=== PATIENT | female | born 1955 | race Caucasian/White ===

== ENCOUNTER 2021-06-08 01:39 | Day surgery (SDC) | payer MEDICARE, SELFPAY ==
[2021-05-31 14:44] VITALS: BMI 30.2
--- NOTE | 2021-06-07 19:39 | PM.HPGS ---
History of Present Illness History of Present Illness Consent: Risks, benefits, and alternatives have been discussed and questions answered. Patient agrees to proceed with procedure. Chief complaint: hx of colon polyps Z86.010 Narrative: Juanita Tran is a 66 year old female here for colon cancer screening. She has a history of polyps Review of Systems Review of Systems: All systems reviewed & are unremarkable except as noted in HPI and below PMFSH Past Medical History Medical History Dyslipidemia 01/30/18 Essential (primary) hypertension Family history of colon cancer in father History of colon polyps Vitamin D deficiency Surgical History Surgical History History of total hysterectomy (Unknown) Family History Family History Other Carcinoma of colon Family history of coronary artery disease Family history of hypercholesterolemia Social History Social History Smoking status: Never smoker Second hand tobacco smoke exposure: No Alcohol intake: never Substance use: never Substance use type: does not use Living arrangements: with family Gender identity (if verbalized by the patient): Female Spiritual care concerns: No Meds Home Medications and Allergies Home Medications Medication Instructions Recorded Confirmed Type cholecalciferol (vitamin D3) 1,250 1,250 mcg PO WEEKLY #12 cap 04/21/21 05/31/21 Rx mcg (50,000 unit) capsule amlodipine 5 mg tablet 5 mg PO DAILY #90 tablet 05/25/21 05/31/21 Rx pravastatin 20 mg tablet 20 mg PO QHS #90 tablet 05/31/21 05/31/21 Rx Allergies Allergy/AdvReac Type Severity Reaction Status Date / Time No Known Allergies Allergy Verified 06/08/21 06:55 Exam Const: General: alert Orientation/consciousness: patient oriented x3 Resp: Auscultation: clear to auscultation bilaterally Cardio: Rhythm: regular rhythm GI: GI Palp: Yes Soft to palpation and No Tenderness to palpation present (GI) Neuro: General: patient oriented x3 Assessment and Plan Assessment and plan (1) Colon cancer screening: Code(s): Z12.11 - Encounter for screening for malignant neoplasm of colon Status: Acute Assessment and Plan: Colonoscopy with possible biopsy or polypectomy or cautery or injection of substances.
[2021-06-08 06:56] VITALS: BP 140/65; PULSE 82; RESP 18; TEMP 36.6; O2SAT 100; BMI 29.8
[2021-06-08] MEDS: LACTATED RINGERS 1,000 ML 150 ML IV CONT (07:07)
--- NOTE | 2021-06-08 07:09 | WPDANESEPPF ---
Anes - Initial Pre Proc Eval Procedure: Operation Date: 06/08/21 08:00 Proposed Procedures p Screening Colonoscopy - Vishal Bryson MD Date/Time: 06/08/21 07:09 Surgeon: Vishal Bryson MD Pre Op Diagnosis: hx of colon polyps Z86.010 Patient Data Age: 66 Gender: F Height: 1.63 m Weight: 78.8 kg Last Vital Signs Temp 36.6 C 06/08/21 06:56 Pulse 82 06/08/21 06:56 Resp 18 06/08/21 06:56 BP 140/65 06/08/21 06:56 Pulse Ox 100 06/08/21 06:56 Allergies Allergy/AdvReac Type Severity Reaction Status Date / Time No Known Allergies Allergy Verified 06/08/21 06:55 Home Medications Medication Instructions Recorded Confirmed Type cholecalciferol (vitamin D3) 1,250 1,250 mcg PO WEEKLY #12 cap 04/21/21 05/31/21 Rx mcg (50,000 unit) capsule amlodipine 5 mg tablet 5 mg PO DAILY #90 tablet 05/25/21 05/31/21 Rx pravastatin 20 mg tablet 20 mg PO QHS #90 tablet 05/31/21 05/31/21 Rx Patient hx anesthesia problems: none Family hx anesthesia problems: none PMFSH Past Medical History Medical History Dyslipidemia 01/30/18 Essential (primary) hypertension Family history of colon cancer in father History of colon polyps Vitamin D deficiency Surgical History Surgical History History of total hysterectomy (Unknown) Family History Family History Other Carcinoma of colon Family history of coronary artery disease Family history of hypercholesterolemia Social History Social History Smoking status: Never smoker Second hand tobacco smoke exposure: No Alcohol intake: never Substance use: never Substance use type: does not use Living arrangements: with family Gender identity (if verbalized by the patient): Female Spiritual care concerns: No Anes - Eval Final PreProcedure Day of Procedure 06/08/21 07:09 Patient weight: overweight Heart: regular rate and rhythm Lungs: clear to auscultation and normal air movement Airway: Mallampati scale class II Neurological: alert and oriented Last oral intake: >/= 8 hours ASA classification: II Emergent: no Anesthetic plan: proceed Anesthesia type and monitoring: general GIVS Informed Consent: The patient's anesthetic plan and its attendant risks and benefits were discussed with the patient/family/POA. Questions were solicited and answers provided to the satisfaction of the patient/family/POA.
[2021-06-08 08:17] VITALS: BP 110/61; PULSE 74; RESP 15; O2SAT 100
[2021-06-08 08:27] VITALS: BP 120/61; PULSE 76; RESP 16; O2SAT 100
[2021-06-08 08:38] VITALS: BP 125/73; PULSE 71; RESP 15; O2SAT 100
== END 2021-06-08 08:48 | disposition home or self-care (01) ==
PROVIDERS: PCP Family Medicine; Visit Provider Internal Medicine Gastroenterology
PROC: 0DJD8ZZ Inspection of Lower Intestinal Tract, Via Natural or Artificial Opening Endoscopic (ICD-10-PCS; CPT 45378; principal; 2021-06-08 08:00)
DX: Z12.11 Encounter for screening for malignant neoplasm of colon (principal); K64.8 Other hemorrhoids; Z86.010 Personal history of colon polyps; I10 Essential (primary) hypertension; E78.5 Hyperlipidemia, unspecified; E55.9 Vitamin D deficiency, unspecified
CPT/HCPCS: G0105; J2704; J7120

== ENCOUNTER 2022-06-01 11:29 | Outpatient (CLI) | payer MEDICARE, SELFPAY ==
[2022-06-01 18:41] LABS: Basophils Absolute Auto 0.1 K/mm3 (0.0-0.1); Eosinophils Absolute Auto 0.1 K/mm3 (0-0.3); Hematocrit 45.8 % (37.0-47.0); Hemoglobin 14.7 g/dL (12.0-15.0); Immature Granulocyte Absolute 0.02 K/mm3 (0.00-0.031); Immature Granulocyte Percent A 0.3 % (0-0.5); Lymphocytes Absolute Auto 2.27 K/mm3 (0.9-3.2); Lymphocytes Percent Auto 37.5 % (18.3-44.2); Mean Corpuscular HGB Conc 32.1 g/dl (32-36); Mean Corpuscular Hemoglobin 28.5 pg (26-34); Mean Corpuscular Volume 88.9 fl (80-100); Mean Platelet Volume 9.4 fl (7.4-10.4); Monocytes Absolute Auto 0.5 K/mm3 (0.1-0.6); Monocytes Percent Auto 8.8 % (2.6-8.5); Neutrophils Absolute Auto 3.1 K/mm3 (1.3-6.7); Neutrophils Percent Auto 50.4 % (45.5-73.1); Platelet Count Result 339 k/mm3 (150-375); Red Blood Count 5.15 M/mm3 (4.2-5.4); Red Cell Distribution Width 13.2 % (11.5-14.5); White Blood Count 6.1 K/mm3 (4.5-10.0)
[2022-06-01 20:42] LABS: Alanine Aminotransferase 27 U/L (6-35); Albumin Level 4.3 g/dL (3.5-5.1); Alkaline Phosphatase 97 U/L (38-126); Anion Gap 8 mmol/L (8-16); Aspartate Amino Transferase 44 U/L (14-36); Bilirubin,Total 0.9 mg/dL (0.2-1.3); Blood Urea Nitrogen 16 mg/dL (7-17); Calcium 9.2 mg/dL (8.4-10.2); Carbon Dioxide 27 mmol/L (22-30); Chloride 105 mmol/L (98-107); Cholesterol 207 mg/dL (0-200); Estimated Glomerular Filt Rate > 60; Glucose 80 mg/dL (65-110); HDL Direct 42 mg/dL; Potassium 4.6 mmol/L (3.4-5.0); Sodium 140 mmol/L (137-145); Triglycerides 240 mg/dL (<150)
[2022-06-01 20:56] LABS: LDL Cholesterol Direct 107 mg/dL
== END 2022-06-01 11:30 | disposition home or self-care (01) ==
LOC: ANHGOSHLAB 11:31
PROVIDERS: PCP Family Medicine; Visit Provider Nurse Practitioner Family
DX: I10 Essential (primary) hypertension (principal); E78.5 Hyperlipidemia, unspecified
CPT/HCPCS: 36415; 80053; 80061; 84443; 85025

== ENCOUNTER 2022-06-27 14:16 | Outpatient (CLI) | payer MEDICARE, SELFPAY ==
[2022-06-27 19:30] LABS: Alanine Aminotransferase 21 U/L (6-35); Albumin Level 4.3 g/dL (3.5-5.1); Alkaline Phosphatase 121 U/L (38-126); Anion Gap 6 mmol/L (8-16); Aspartate Amino Transferase 32 U/L (14-36); Bilirubin,Total 0.8 mg/dL (0.2-1.3); Blood Urea Nitrogen 16 mg/dL (7-17); Calcium 8.7 mg/dL (8.4-10.2); Carbon Dioxide 28 mmol/L (22-30); Chloride 103 mmol/L (98-107); Estimated Glomerular Filt Rate > 60; Glucose 112 mg/dL (65-110); Potassium 4.2 mmol/L (3.4-5.0); Sodium 137 mmol/L (137-145)
== END 2022-06-27 14:17 | disposition home or self-care (01) ==
LOC: ANHGOSHLAB 14:19
PROVIDERS: PCP Family Medicine; Visit Provider Nurse Practitioner Family
DX: R74.01 Elevation of levels of liver transaminase levels (principal)
CPT/HCPCS: 36415; 80053

== ENCOUNTER 2022-11-30 09:16 | Outpatient (CLI) | payer MEDICARE, SELFPAY ==
[2022-11-30 12:35] LABS: Kit Draw Collected
== END 2022-11-30 09:17 | disposition home or self-care (01) ==
LOC: ANHGOSHLAB 09:19
PROVIDERS: PCP Family Medicine; Visit Provider Nurse Practitioner Family
DX: E78.5 Hyperlipidemia, unspecified (principal); I10 Essential (primary) hypertension
CPT/HCPCS: 36415

== ENCOUNTER → 2023-06-04 16:15 | Outpatient (CLI) | payer MEDICARE, OTHER, SELFPAY ==
--- NOTE | ~2023-06-04 | MM_ITS ---
EXAMINATION: MM screening [facility] BI w brianna HISTORY: Screening mammogram TECHNIQUE: Craniocaudal and mediolateral oblique 3-D tomosynthesis images were obtained and synthetic 2-D images were generated. CAD analysis was submitted and interpreted. COMPARISON: 03/15/2022, 03/02/2021, 05/05/2019 bilateral screening mammogram examinations BREAST PARENCHYMAL COMPOSITION: There are scattered areas of fibroglandular density. FINDINGS: There is a biopsy marker on the right; history of prior benign right breast biopsy. There i s no evidence of suspicious mass, calcification, or architectural distortion to suggest malignancy in either breast. There has been no suspicious interval change. IMPRESSION: 1. No mammographic evidence of malignancy. 2. Recommend routine screening mammography in one year. BI-RADS Category 1: Negative Reviewed, dictated and finalized at location A.
== END ==
DX: Z12.31 Encounter for screening mammogram for malignant neoplasm of breast (principal); Z13.820 Encounter for screening for osteoporosis; M81.0 Age-related osteoporosis without current pathological fracture
CPT/HCPCS: 77063; 77067

== ENCOUNTER 2023-06-07 09:12 | Outpatient (CLI) | payer MEDICARE, SELFPAY ==
[2023-06-07 10:09] LABS: Basophils Absolute Auto 0.1 K/mm3 (0.0-0.1); Basophils Percent Auto 0.9 % (0.2-1.2); Eosinophils Absolute Auto 0.2 K/mm3 (0-0.3); Eosinophils Percent Auto 2.7 % (0-4.4); Hemoglobin 14.8 g/dL (12.0-15.0); Immature Granulocyte Absolute 0.02 K/mm3 (0.00-0.031); Immature Granulocyte Percent A 0.4 % (0-0.5); Lymphocytes Absolute Auto 1.93 K/mm3 (0.9-3.2); Lymphocytes Percent Auto 34.2 % (18.3-44.2); Mean Corpuscular HGB Conc 32.9 g/dl (32-36); Mean Corpuscular Hemoglobin 28.7 pg (26-34); Mean Corpuscular Volume 87.4 fl (80-100); Mean Platelet Volume 9.2 fl (7.4-10.4); Monocytes Absolute Auto 0.5 K/mm3 (0.1-0.6); Monocytes Percent Auto 9.2 % (2.6-8.5); Neutrophils Percent Auto 52.6 % (45.5-73.1); Platelet Count Result 275 k/mm3 (150-375); Red Blood Count 5.15 M/mm3 (4.2-5.4); Red Cell Distribution Width 13.2 % (11.5-14.5); White Blood Count 5.6 K/mm3 (4.5-10.0)
[2023-06-07 10:27] LABS: Alanine Aminotransferase 21 U/L (6-35); Albumin Level 4.2 g/dL (3.5-5.1); Alkaline Phosphatase 82 U/L (38-126); Anion Gap 2 mmol/L (8-16); Aspartate Amino Transferase 26 U/L (14-36); Bilirubin,Total 1.2 mg/dL (0.2-1.3); Blood Urea Nitrogen 22 mg/dL (7-17); Calcium 8.9 mg/dL (8.4-10.2); Carbon Dioxide 32 mmol/L (22-30); Chloride 104 mmol/L (98-107); Cholesterol 220 mg/dL (0-200); Estimated Glomerular Filt Rate > 60; Glucose 93 mg/dL (65-110); HDL Direct 58 mg/dL; Potassium 4.4 mmol/L (3.4-5.0); Sodium 138 mmol/L (137-145); Triglycerides 167 mg/dL (<150)
[2023-06-07 10:38] LABS: LDL Cholesterol Direct 118 mg/dL
[2023-06-07 10:49] LABS: Hemoglobin A1C 5.5 % (<5.7)
[2023-06-07 19:55] LABS: Vitamin D 25 Hydroxy 47.8 ng/mL
== END 2023-06-07 09:13 | disposition home or self-care (01) ==
PROVIDERS: Visit Provider Nurse Practitioner Family
DX: Z13.220 Encounter for screening for lipoid disorders (principal); Z13.21 Encounter for screening for nutritional disorder; Z13.29 Encounter for screening for other suspected endocrine disorder; Z13.1 Encounter for screening for diabetes mellitus; E11.69 Type 2 diabetes mellitus with other specified complication; I10 Essential (primary) hypertension; E78.5 Hyperlipidemia, unspecified
CPT/HCPCS: 36415; 80053; 80061; 82306; 83036; 84443; 85025

== ENCOUNTER → 2023-07-26 12:10 | Outpatient (CLI) | payer MEDICARE, SELFPAY ==
--- NOTE | ~2023-07-26 | DEXA_ITS ---
Bone Density Report Name: NINA LINK Age: 68 Sex: Female Ethnicity: White Date of : 1955 Indication: postmenopausal; screening for osteoporosis; hysterectomy; Referring Provider: TOMMIE GRAVES Study: Bone densitometry was performed. Exam Date: July 26, 2023 Accession number: [id number] Bone Density: Region BMD T-score Z-score Classification AP Spine (L1-L4) 0.959 -0.8 1.1 Normal Femoral Neck (Left) 0.819 -0.3 1.4 Normal Total Hip (Left) 0.875 -0.5 0.8 Normal Femoral Neck (Right) 0.728 -1.1 0.6 Osteopenia Total Hip (Right) 0.830 -0.9 0.4 Normal Total Hip Mean 0.853 -0.7 0.6 Normal World Health Organization criteria for BMD impression classify patients as: Normal (T-score at or above -1.0), Osteopenia (T-score between -1.0 and -2.5), or Osteoporosis (T-score at or below -2.5). 10-year Fracture Risk(1): Major Osteoporotic Fracture 8.3% Hip Fracture 0.7% Reported Risk Factors: [place] (), Neck BMD=0.728, BMI=31.0 (1) FRAX(R) Version 3.08. Fracture probability calculated for an untreated patient. Fracture probability may be lower if the patient has received treatment. Clinical Information Provided by Patient: Has used the following medications: Vitamin D Has the following medical conditions: Hysterectomy Patient maximum height was 64.0 Menopause Age: 46 Onset of menses at age 13 Number of children 2 Impression: The patient has low bone mass, based on the Right Femoral Neck T-score. The patient has an estimated ten-year risk of hip fracture of 0.7% and an estimated ten-year risk of major fracture of 8.3%, based on the WHO FRAX algorithm. Discussion: BONE DENSITY IS LOW AT ONE OR MORE SKELETAL SITES. This patient's lowest T-score is low at one or more skeletal sites. It meets the World Health Organization's (WHO) criteria for ?low bone mass? (T-score between -1.0 and -2.5). The patient's 10-year risk of fracture as calculated by FRAX is less than the threshold where pharmacological therapy is recommended by the National Osteoporosis Foundation (NOF). However, all treatment decisions require clinical judgment and consideration of individual patient factors, including patient preferences, comorbidities, previous drug use, risk factors not captured in the FRAX model (e.g., frailty, falls, vitamin D deficiency, increased bone turnover, interval significant decline in bone density) and possible under or overestimation of fracture risk by FRAX. The patient should follow a healthful lifestyle (good nutrition with adequate calcium and vitamin D, and appropriate weight-bearing exercise). Follow-Up: Consider repeating this study in 2 to 3 years to reassess this patient's status, or sooner if there is some new clinical indication. Reported by: [facility] on 07/26/2023 12:52:00 PM.
== END ==
PROVIDERS: PCP Family Medicine
DX: Z78.0 Asymptomatic menopausal state (principal); M85.851 Other specified disorders of bone density and structure, right thigh
CPT/HCPCS: 77080

== ENCOUNTER 2023-11-30 12:12 | Emergency (ER) | payer MEDICARE, SELFPAY ==
[2023-11-30 12:29] VITALS: BP 124/81; PULSE 89; RESP 16; TEMP 37; O2SAT 99
--- NOTE | 2023-11-30 12:56 | ED.FEMALEGU ---
HPI - Female Genitourinary General Chief complaint: Urogenital-Female Stated complaint: UTI SYMPTOMS Source: patient and RN notes reviewed Mode of arrival: ambulatory Limitations: no limitations History of Present Illness HPI Narrative: 68-year-old female presented for complaint of burning with urination, frequency and urgency over the past week. She started drinking and reported brief improvement in symptoms. However she states today the burning pain is worse. Denies hematuria, nausea, vomiting, abdominal pain, flank pain, constipation, diarrhea, fevers or chills. Denies ever having UTI. Related Data Home Medications Medication Instructions Recorded Confirmed cholecalciferol (vitamin D3) 50 50 mcg PO DAILY 06/01/22 06/07/23 mcg (2,000 unit) tablet omega 7-wdf-jle-fish oil 100 cap PO 06/07/23 06/07/23 mg-160 mg-1,000 mg capsule (Fish Oil) calcium 600 mg capsule mg PO 11/30/23 Allergies Allergy/AdvReac Type Severity Reaction Status Date / Time No Known Allergies Allergy Verified 06/07/23 08:28 Review of Systems Review of Systems: CONSTITUTIONAL: Denies body aches, fever, chills, or sweats. CARDIOVASCULAR: Denies chest pain, palpitations, or edema. RESPIRATORY: Denies cough or dyspnea. GASTROINTESTINAL: Denies abdominal pain, nausea, vomiting, or diarrhea. GENITOURINARY: Reports dysuria, frequency, urgency,denies hematuria, flank pain SKIN: Denies rash, itching, or wounds. MUSCULOSKELETAL: Denies back pain or myalgia. [facility] Past Medical History Medical History Dyslipidemia 01/30/18 Essential (primary) hypertension Excess wax in ear Family history of colon cancer in father History of colon polyps Vitamin D deficiency Surgical History Surgical History History of total hysterectomy (Unknown) Family History Family History Other Carcinoma of colon Family history of coronary artery disease Family history of hypercholesterolemia Social History Social History Smoking status: Never smoker Second hand tobacco smoke exposure: No Alcohol intake: never Substance use: never Substance use type: does not use Lack of Transportation: No Lack of Food: Never True Current Housing: I Have Housing Concerned About Future Housing: No Difficulty Paying Gas/Electric Bills: No Difficulty Paying for Meds: No Currently Unemployed: No Education: High School Diploma/GED Living arrangements: with family Additional living arrangements comments: Occupation/Education: retired Gender identity (if verbalized by the patient): Female Sexual Orientation (if Verbalized by the Patient): Straight or Heterosexual Spiritual care concerns: No Agree to blood products: Yes Comments At time of signature, I have reviewed and agree with nursing past medical, surgical, social and family history unless otherwise noted. Please see nursing chart for further information. There is no relevant family history pertinent to the presenting complaint Exam Narrative: GENERAL: Well-appearing ENT: Mucous membranes pink and moist. NECK: Normal AROM. Supple. CHEST: No respiratory distress. Clear to auscultation. HEART: Regular rate and rhythm. ABDOMEN: Soft, nontender, nondistended, normal active bowel sounds. No CVA tenderness MUSCULOSKELETAL: No bony tenderness. SKIN: Warm, dry, no rash. NEURO: No focal deficits. Alert and oriented x3. Gait steady. PSYCH: Normal affect. Course Course Emergency Course: Patient is aware of diagnosis, understands and agrees to treatment plan. Anticipatory guidance given. Patient agrees to follow-up as directed and is aware of reasons to seek care at the emergency department. Portions of this record may have been create
== END 2023-11-30 13:11 | disposition home or self-care (01) ==
PROVIDERS: Emergency Provider Nurse Practitioner Family; PCP Nurse Practitioner Family
DX: N39.0 Urinary tract infection, site not specified (principal); E78.5 Hyperlipidemia, unspecified; I10 Essential (primary) hypertension; E55.9 Vitamin D deficiency, unspecified
CPT/HCPCS: 81003; 87086; 99213; G0463

== ENCOUNTER 2023-12-11 11:23 | Outpatient (CLI) | payer MEDICARE, SELFPAY ==
[2023-12-11 15:02] LABS: Basophils Absolute Auto 0.1 K/mm3 (0.0-0.1); Basophils Percent Auto 0.9 % (0.2-1.2); Eosinophils Absolute Auto 0.1 K/mm3 (0-0.3); Eosinophils Percent Auto 1.4 % (0-4.4); Hematocrit 46.6 % (37.0-47.0); Hemoglobin 14.6 g/dL (12.0-15.0); Immature Granulocyte Absolute 0.02 K/mm3 (0.00-0.031); Immature Granulocyte Percent A 0.3 % (0-0.5); Lymphocytes Absolute Auto 2.23 K/mm3 (0.9-3.2); Mean Corpuscular HGB Conc 31.3 g/dl (32-36); Mean Corpuscular Hemoglobin 28.8 pg (26-34); Mean Corpuscular Volume 91.9 fl (80-100); Mean Platelet Volume 9.5 fl (7.4-10.4); Monocytes Absolute Auto 0.5 K/mm3 (0.1-0.6); Monocytes Percent Auto 8.2 % (2.6-8.5); Neutrophils Percent Auto 51.2 % (45.5-73.1); Platelet Count Result 312 k/mm3 (150-375); Red Blood Count 5.07 M/mm3 (4.2-5.4); Red Cell Distribution Width 13.6 % (11.5-14.5); White Blood Count 5.9 K/mm3 (4.5-10.0)
[2023-12-11 15:52] LABS: Alanine Aminotransferase 19 U/L (6-35); Albumin Level 4.2 g/dL (3.5-5.1); Alkaline Phosphatase 80 U/L (38-126); Anion Gap 1 mmol/L (8-16); Aspartate Amino Transferase 35 U/L (14-36); Bilirubin,Total 1.3 mg/dL (0.2-1.3); Blood Urea Nitrogen 19 mg/dL (7-17); Calcium 9.1 mg/dL (8.4-10.2); Carbon Dioxide 31 mmol/L (22-30); Chloride 106 mmol/L (98-107); Cholesterol 196 mg/dL (0-200); Estimated Glomerular Filt Rate > 60; Glucose 89 mg/dL (65-110); HDL Direct 52 mg/dL; Potassium 4.2 mmol/L (3.4-5.0); Sodium 138 mmol/L (137-145); Triglycerides 147 mg/dL (<150)
[2023-12-11 16:06] LABS: LDL Cholesterol Direct 123 mg/dL
[2023-12-13 14:01] LABS: Hemoglobin A1C 5.7 % (<5.7)
== END 2023-12-11 11:24 | disposition home or self-care (01) ==
PROVIDERS: PCP Family Medicine; Visit Provider Nurse Practitioner Family
DX: E78.5 Hyperlipidemia, unspecified (principal); I10 Essential (primary) hypertension; R74.01 Elevation of levels of liver transaminase levels; R73.03 Prediabetes
CPT/HCPCS: 36415; 80053; 80061; 83036; 85025

== ENCOUNTER 2024-06-05 09:06 | Outpatient (CLI) | payer MEDICARE, SELFPAY ==
[2024-06-05 16:09] LABS: Vitamin D 25 Hydroxy 30.8 ng/mL
[2024-06-05 16:16] LABS: Alanine Aminotransferase 14 U/L (6-35); Albumin Level 4.1 g/dL (3.5-5.1); Alkaline Phosphatase 82 U/L (38-126); Anion Gap 8 mmol/L (4-12); Aspartate Amino Transferase 42 U/L (14-36); Bilirubin,Total 1.1 mg/dL (0.2-1.3); Blood Urea Nitrogen 17 mg/dL (7-17); Calcium 8.8 mg/dL (8.4-10.2); Carbon Dioxide 29 mmol/L (22-30); Chloride 102 mmol/L (98-107); Cholesterol 184 mg/dL (0-200); Estimated Glomerular Filt Rate > 60; Glucose 76 mg/dL (65-110); HDL Direct 51 mg/dL; Potassium 4.1 mmol/L (3.4-5.0); Sodium 139 mmol/L (137-145); Triglycerides 157 mg/dL (<150)
[2024-06-05 16:26] LABS: Basophils Absolute Auto 0.1 K/mm3 (0.0-0.1); Basophils Percent Auto 1.1 % (0.2-1.2); Eosinophils Absolute Auto 0.1 K/mm3 (0-0.3); Eosinophils Percent Auto 2.4 % (0-4.4); Hematocrit 46.7 % (37.0-47.0); Hemoglobin 14.8 g/dL (12.0-15.0); Immature Granulocyte Absolute 0.01 K/mm3 (0.00-0.031); Immature Granulocyte Percent A 0.2 % (0-0.5); Lymphocytes Absolute Auto 1.86 K/mm3 (0.9-3.2); Lymphocytes Percent Auto 34.6 % (18.3-44.2); Mean Corpuscular HGB Conc 31.7 g/dl (32-36); Mean Corpuscular Hemoglobin 29.1 pg (26-34); Mean Corpuscular Volume 91.9 fl (80-100); Mean Platelet Volume 9.6 fl (7.4-10.4); Monocytes Absolute Auto 0.4 K/mm3 (0.1-0.6); Monocytes Percent Auto 7.8 % (2.6-8.5); Neutrophils Absolute Auto 2.9 K/mm3 (1.3-6.7); Neutrophils Percent Auto 53.9 % (45.5-73.1); Platelet Count Result 271 k/mm3 (150-375); Red Blood Count 5.08 M/mm3 (4.2-5.4); Red Cell Distribution Width 13.4 % (11.5-14.5); White Blood Count 5.4 K/mm3 (4.5-10.0)
[2024-06-05 16:28] LABS: LDL Cholesterol Direct 106 mg/dL
[2024-06-05 16:48] LABS: Hemoglobin A1C 5.7 % (<5.7)
== END 2024-06-05 09:07 | disposition home or self-care (01) ==
PROVIDERS: PCP Family Medicine; Visit Provider Nurse Practitioner Family
DX: E78.5 Hyperlipidemia, unspecified (principal); E55.9 Vitamin D deficiency, unspecified; Z13.29 Encounter for screening for other suspected endocrine disorder
CPT/HCPCS: 36415; 80053; 80061; 82306; 82607; 83036; 84443; 85025

== ENCOUNTER 2024-06-08 09:58 | Outpatient (CLI) | payer MEDICARE, SELFPAY ==
--- NOTE | ~2024-06-08 | MM_ITS ---
EXAMINATION: MM screening [facility] BI w brianna HISTORY: Screening mammogram TECHNIQUE: Craniocaudal and mediolateral oblique 3-D tomosynthesis images were obtained and synthetic 2-D images were generated. CAD analysis was submitted and interpreted. COMPARISON: 06/04/2023, 03/15/2022, 03/02/2021 BREAST PARENCHYMAL COMPOSITION:Not Dense. There are scattered areas of fibroglandular density. FINDINGS: No suspicious mass, calcification, or architectural distortion are identified in either farhana ast to suggest malignancy. There has been no suspicious interval change. IMPRESSION: No mammographic evidence of malignancy. Recommend routine screening mammography in one year. BI-RADS Category 1: Negative Reviewed, dictated and finalized at location .
== END 2024-06-08 09:59 | disposition home or self-care (01) ==
PROVIDERS: PCP Family Medicine
DX: Z12.31 Encounter for screening mammogram for malignant neoplasm of breast (principal)
CPT/HCPCS: 77063; 77067

== ENCOUNTER 2024-11-12 14:13 | Outpatient (CLI) | payer MEDICARE, SELFPAY ==
--- OUTSIDE RECORDS SUMMARY | 2024-11-12 14:21 | XMS_ITS | Patient Health Summary ---
Author Organization [facility] Address [address] [place] [address] Care Team Providers Care Mud Grinder Name Role Phone Unavailable Primary Care Provider Unavailabl e Note from [facility],non-owned Affiliates and Associated Physician Practices is amultiple site organization consisting of ambulatory clinics and hospital sitesin [place], [place], [place] and [place]. This disclosure is being madepursuant to the Care Everywhere program and may not contain all information available regarding this patient. Last updated 18.[facility] Social History Tobacco Use Types Packs/Day Years Used Date Smoking Tobacco: Never Assessed Sex and Gender Information Value Date Recorded Sex Assigned at Not on file Gender Identity Not on file Sexual Orientation Not on file Procedures * DERMATOPATHOLOGY(Performed 03/04/2012) * FROZEN SECTION(Performed 01/10/2005) Results * PATHOLOGY TISSUE FOR DERMATOLOGY (03/04/2012 12:00 AM CDT) Result CASE: [id number] PATIENT: JUANITA LINK PATHOLOGIC DIAGNOSIS: Left side neck: SOLAR LENTIGO CLINICAL DATA: R/O Dysplastic nevus vs lentigo. GROSS DESCRIPTION: Received is one formalin filled container labeled with the patient's name and designated left side neck. The specimen consists of a shave biopsy measuring 5x5x1 mm. Jar 0. MICROSCOPIC DESCRIPTION: There is orthokeratosis. There is a slight increase in epidermal thickness with lentiginous buds of hyperpigmented keratinocytes. The number of melanocytes is only mildly increased. In the dermis, there is basophilic degeneration of elastic fibers. Final Diagnosis performed by Jaimie Landers M.D. Electronically signed 03/05/2012 1:36:20PM [facility] Comment: Performed at: Dermatopathology Laboratory [facility] Department of Dermatology [address] [place] [address], [address] [place] [address] Phone number: [phone] Toll Free: [phone] FAX: [phone] 03/04/2012 03/04/2012 Timoteo Rausch MD LAB - PATHOLOGY/CYTO LOGY ORDERABLES [facility] [address] [place] [address], [facility] [phone] * FROZEN SECTION (01/10/2005 11:57 AM CDT) Result CASE NUMBER [id number] Comment: ORDERING PHYSICIAN FAN FERNANDEZ SPECIMEN TYPE Tissue-adnexal mass Date 01/11/2005 Physician Tobin Gross Description The specimen is received in formalin labeled `adnexal mass'. It is received in fresh state and consists of uterus, with cervix, both ovaries and tubes. The uterus measures 12 x 6 x 5 cm in maximum dimension. Each tube measures approximately 6 cm in length and 6 mm in maximum dimension. Both ovaries are cystic, slightly enlarged, each measures about 2.5 x 1.5 x 1 cm in maximum dimension. Entire specimen weighs 250 gms. The ectocervix shows focal, slightly congested mucosa, otherwise most of it is pink smooth and glistening. The endocervical canal has a sticky mucoid material. The endometrium is thickened, varies from 3 to 6 mm. Myometrium is fleshy, measures up to 2.5 cm in thickness. Sections submitted as follows section from the left ovary for frozen section in FSA, section from cervix in B and C, section endometrium and myometrium including few toussaint white nodules identified in the myometrium submitted in D through H. Largest of these nodular lesions measures 1.8 x 1 cm in maximum dimension. The right tube fimbrial end reveals cysts, measuring 1 cm in maximum dimension. It is filled with a clear fluid. Cut section of ovary is partially cystic and solid. Poly Packer And Heat Sealer sections from right ovary and tube in cassette I. The left tube appears slightly dilated and ovary is mostly cystic with a few solid areas. Poly Packer And Heat Sealer sections from left ovary and cyst in cassette J. Sections from the left ovary is also submitted for frozen labeled as FSA. RN/jmc Microscopic Exam Sections of cervix reveals squamocolumnar lined tissue fragments with areas of squamous metaplasia. Dysplasia is not seen. The stroma shows acute and chronic inflammatory cell infiltration. Sections of the endometrium reveals late secretory phase endometrium. Sections of the myometrium reveals a leiomyoma made up of elongated interlacing bundles of smooth muscle cells. Areas of hyalinization is seen. No evidence of necrosis, malignancy is seen. Sections of the myometrium also reveals adenomyosis. Sections of the right ovary reveals serosal fibrous adhesions. Sections of the fallopian tube is unremarkable. 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 Sections labeled FSA and J are from the left ovary and fallopian tube. Section of the frozen reveals hemorrhagic corpusluteum. Serosal fibrous adhesions are seen. Malignancy is not seen. Section J reveals section of fallopian tube and paratubal tissue. Hydrosalpinx is noted. Also noted is endometriosis. Malignancy is not seen. Sr/ Diagnosis FROZEN SECTION DIAGNOSIS I. Uterus, cervix, bilateral tubes and ovaries -- FSA - Left ovary - corpus luteum adhesions, benign endometrium, gross only (SR/MC) FINAL DIAGNOSIS I. Left ovary, fallopian tube, frozen section -- Serosal fibrous adhesions -- Hydrosalpinx -- Paratubal endometriosis II. Right ovary and fallopian tube -- Serosal fibrofatty adhesions -- Hydatid cyst of Morgagni III. Uterus, cervix -- Acute and chronic cervicitis IV. Uterus, endometrium -- Secretory phase endometrium V. Uterus, myometrium -- Leiomyomata -- Adenomyosis sr/ Report Writer [facility] Pathologist Rosa Miranda M.D. [place]. 01/11/2005 1048 <6> CPT code 28884, 50929 MISCELLANEOUS SAMPLES / Unknown 01/10/2005 11:57 AM CDT 01/10/2005 11:57 AM CDT Historical Provider LAB - PATHOLOGY/C YTOLOGY ORDERABLES
--- OUTSIDE RECORDS SUMMARY | 2024-11-12 14:21 | XMS_ITS | Clinical Summary ---
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 PHYSICIAN EXAM Plan of Treatment No Plan of Treatment Recorded Assessments Includes: Assessments from this encounter No Assessments Recorded Medical Equipment - Implanted Devices Includes: Current Devices No Medical Equipment Recorded Medications Administered Includes: Administered Medications from this encounter No Administered Medications Recorded Results Includes: Results discussed during this encounter No Results Recorded For Specified Dates History of Present Illness Includes: History of Present Illness from this encounter No History of Present Illness Recorded Social History No Social History Recorded - Smoking Status Unknown Medical History Includes: Medical History addressed during this encounter No Medical History Recorded Family History Includes: Family History addressed during this encounter No Family History Recorded Review of Systems Includes: Review of Systems from this encounter No Review of Systems Recorded Mental Status Includes: Mental Status from this encounter No Mental Status Recorded Functional Status Includes: Functional Status from this encounter No Functional Status Recorded Physical Exam Includes: Physical Exam from this encounter No Physical Exam Recorded Allergies Includes: Active Allergies No Known Allergies Encounters Encounter Provider Location Date Check-In Time Check-Out Time Diagnosis INFECTIOUS DISEASES PHYSICIAN EXAM SARAH TREJO [facility] [employer] 8 9:38AM 10:50AM Clinical Notes Includes: Clinical Notes from this encounter No Clinical Notes Recorded
--- OUTSIDE RECORDS SUMMARY | 2024-11-12 14:21 | XMS_ITS | Clinical Summary ---
Author Organization [facility] Address [address] [place] [address] Care Team Providers Care Truck Manager Name Role Phone Unavailable Primary Care Provider Unavailabl e Source Comments [facility],non-owned Affiliates and Associated Physician Practices is amultiple site organization consisting of ambulatory clinics and hospital sitesin [place], [place], [place] and [place]. This disclosure is being madepursuant to the Care Everywhere program and may not contain all information available regarding this patient. Last updated 18.[facility] Social History Tobacco Use Types Packs/Day Years Used Date Smoking Tobacco: Never Assessed Sex and Gender Information Value Date Recorded Sex Assigned at Not on file Gender Identity Not on file Sexual Orientation Not on file Plan of Treatment Health Maintenance Due Date Last Done Comments BONE DENSITY TESTING 1955 COLOGUARD (AGES 45-75) - COL ON CA SCREENING 1955 COLON MONITORING 1955 COLONOSCOPY - COLON CA SCREENING 1956 CT COLONOGRAPHY - COLON CA SCREENING 1955 Colorectal Cancer Screening 1955 FIT - COLON CA SCREENING 1955 FLEX SIG - COLON CA SCREENING 1955 LIPID TESTING 1955 MAMMOGRAM 1955 HEPATITIS C SCREENING 01/14/1974 DTAP/TDAP/TD VACCINES (1 - Tdap) 01/18/1975 PNEUMOCOCCAL VACCINE 50+ (1 of 1 - PCV) 01/18/2006 ZOSTER VACCINE (1 of 2) 01/18/2006 COVID-19 VACCINE ( - 2023-2 5 season) 2024 INFLUENZA VACCINE (#1) 2024 DEPRESSION SCREENING 09/23/2024 Respiratory Syncytial Virus (RSV) Vaccine Pt: or over 60 yrs (1 - 1-dose 75+ series) 01/18/2031 HEPATITIS B VACCINE Aged Out No longe r eligible based on patient's age to complete this topic HIB VACCINE Aged Out No longer eligi ble based on patient's age to complete this topic HPV VACCINE Aged Out No longer eligi ble based on patient's age to complete this topic MENINGOCOCCAL (Group B) VACCINE Aged Out No longer eligible based on patient's age to complete this topic MENINGOCOCCAL VACCINE Aged Out No francisco j naomi eligible based on patient's age to complete this topic
--- OUTSIDE RECORDS SUMMARY | 2024-11-12 14:22 | XMS_ITS | Clinical Summary ---
Author Organization [facility] Address [address] [place] [address] Phone Care Team Providers Care Unified Communications Architect Name Role Phone Elijha Kaufman MD Primary Care Provider [phone] Allergies No known active allergies Medications No known medications Active Problems Patient Care Coordination No te Formatting of this note migh t be different from the original. 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 Family History Medical History Relation Name Comments Cancer Father mets Colon Cancer Father Lung Cancer Father Breast Cancer Neg Hx Ovarian Cancer Neg Hx Relation Name Status Comments Father Social History Tobacco Use Types Packs/Day Years Used Date Smoking Tobacco: Never Smokeless Tobacco: Never Alcohol Use Standard Drinks/Week Comments Yes 0 (1 standard drink = 0.6 oz pur e alcohol) rare Comments No Sex and Gender Information Value Date Recorded Sex Assigned at Not on file Legal Sex Female 10:07 AM CDT Gender Identity Not on file Sexual Orientation Not on file Occupation Industry Job Start Date Job End Date Not on file Not on file Not on file Not on file Last Filed Vital Signs Vital Sign Reading Time Taken Comments Blood Pressure 131/76 02/23/2013 9:59 AM CDT Pulse - - Temperature - - Respiratory Rate - - Oxygen Saturation - - Inhaled Oxygen Concentration - - Weight 66.7 kg (147 lb) 02/23/2013 9:59 AM CDT Height 162.6 cm (5' 4 ) 02/23/2013 9:59 AM CDT Body Mass Index 25.23 02/23/2013 9:59 AM CDT Plan of Treatment Health Maintenance Due Date Last Done Comments DTAP/TDAP/TD VACCINES (1 - Tdap) 01/18/1975 COLORECTAL SCREENING 01/18/2001 Colorectal Cancer Screening 01/18/2001 FIT-DNA Q 3 years 01/18/2001 FIT/FOBT Q 1 year 01/18/2001 Flex Sig/CT Colonography Q 5 years 01/18/2001 PNEUMOCOCCAL VACCINE 65+ YEA RS (1 of 1 - PCV) 01/18/2006 ZOSTER VACCINE (1 of 2) 01/18/2006 BREAST CANCER SCREENING 03/15/2023 03/15/20 22, 03/02/2021, 05/05/2019, Additional history exists INFLUENZA VACCINE (#1) 2024 RSV VACCINE (60+ or ) (1 - 1-dose 75+ series) 01/18/2031 OSTEOPOROSIS SCREENING Completed 05/05/2019, 2016 Procedures Procedure Name Priority Date/Time Associated Diagnosis Comments MAMMO 3D REGINA SCREEN BILAT W OR WO CAD Routine 03/15/2022 10:38 AM CDT Breast cancer screening by mammogram XR DEXA BONE DENSITY AXIAL 1 OR MORE SITES Routine 05/05/2019 10:42 AM CDT Screening for osteoporosis from Last 3 Months or Most Recently Relevant to Health Maintenance Results * MAMMO SCRN BILAT 3D REGINA W OR WO CAD (03/15/2022 10:38 AM CDT) Anatomical Region Laterality Modality Breast Bilateral Mammography Narrative 03/15/2022 1:02 PM CDT Bilateral Digital Mammogram with CAD and 3D Tomography Reason for Exam: Screening Comparison: Compared to: 03/02/2021 MAMMO SCRN BILAT 3D REGINA W OR WO CAD, 05/05/2019 MAMMO SCRN BILAT 3D REGINA W OR WO CAD, and 04/29/2018 MAMMO DIAG BILAT 3D REGINA W OR WO CAD Technique: 3D MLO and CC digital tomosynthesis images were acquired and synthesized 2D images (C view) were generated. This digital mammogram was also analyzed by the Computer Aided Detection System CAD). Findings: There are scattered areas of fibroglandular density. There are no suspicious masses, areas of architectural distortions, or microcalcifications to suggest malignancy. No significant new findings since the prior mammogram(s). Impression: Negative screening mammogram. Recommendation: Routine annual follow-up Overall Assessment: Birads Category 1: Negative Leticia Esquivel CNM MAMMO ORDERABLES Final Resu lt * XR DEXA BONE DENSITY AXIAL 1 OR MORE SITES (05/05/2019 10:42 AM CDT) Anatomical Region Laterality Modality Computed Radiogr aphy 05/05/2019 10:4 2 AM CDT Impressions 05/05/2019 10:47 AM CDT IMPRESSION: This is a summary page. Please refer to the complete detailed report found in the Imaging Section of the [facility] EMR. Normal BMD. Comments: L3 and L4 were excluded due to excessive statistical variation. Statistical change: Significant decrease in bone mineral density within the lumbar spine. A statistically significant change is defined as a change of greater than 2.5 standard deviations in the least significant difference from the prior study. Least significant differences are defined as follows: Lumbar spine: +/- 0.010 g/cm2 Femoral neck: +/- 0.014 g/cm2 Forearm radius 33%: +/- 0.020 g/cm2 FRAX FRACTURE RISK ASSESSMENT: Risk factors: None. 10 Year Probability Of Fracture Major Osteoporotic: 7.2 % Hip: 0.4 % Comparison population: [place], Race: A major osteoporotic fracture is defined as a fracture of the spine, forearm, hip or shoulder. Definitions: Normal: T-score above -1.0 Osteopenia T-score less than -1.0 and above -2.5 Osteoporosis: T-score <= -2.5 Follow-up Recommendations: Patients without high risk factors for osteoporosis T-score -1.0 to -1.5 - Consider repeat BMD in 5-10 years T-score -1.5 to - 2.0 - Consider repeat BMD in 3-5 years T-score -2.0 to - 2.5 - Consider repeat BMD every 2 years Patients on treatment for osteoporosis 1-2 years after initiation of treatment and every 2 years thereafter DICTATION LOCATION: Location 1 - [facility] Narrative 05/05/2019 10:47 AM CDT EXAMINATION: BONE DENSITY STUDY (DXA) DATE: 05/05/2019 10:42 AM HISTORY: 64 years Female. Post-menopausal symptoms. PROCEDURE: Planar images of the lumbar spine and hip(s) using a LUNAR DEXA scanner for bone mineral density determination (BMD). Prior bone density: 04/18/2017 FINDINGS: Lumbar Spine (L1-2): 1.101 g/sq cm T-Score: -0.5 Prior: 1.134 g/sq cm Left Femoral Neck: 0.942 g/sq cm T-Score: -0.7 Prior: 0.925 g/sq cm Left Total Femur: T-Score: -0.5 Right Femoral Neck: 0.914 g/sq cm T-Score: -0.9 Prior: 0.943 g/sq cm Right Total Femur: T-Score: -0.7 Procedure Note Harley Soto MD - 05/05/2019 EXAMINATION: BONE DENSITY STUDY (DXA) DATE: 05/05/2019 10:42 AM HISTORY: 64 years Female. Post-menopausal symptoms. PROCEDURE: Planar images of the lumbar spine and hip(s) using a LUNAR DEXA scanner for bone mineral density determination (BMD). Prior bone density: 04/18/2017 FINDINGS: Lumbar Spine (L1-2): 1.101 g/sq cm T-Score: -0.5 Prior: 1.134 g/sq cm Left Femoral Neck: 0.942 g/sq cm T-Score: -0.7 Prior: 0.925 g/sq cm Left Total Femur: T-Score: -0.5 Right Femoral Neck: 0.914 g/sq cm T-Score: -0.9 Prior: 0.943 g/sq cm Right Total Femur: T-Score: -0.7 IMPRESSION: This is a summary page. Please refer to the complete detailed report found in the Imaging Section of the [facility] EMR. Normal BMD. Comments: L3 and L4 were excluded due to excessive statistical variation. Statistical change: Significant decrease in bone mineral density within the lumbar spine. A statistically significant change is defined as a change of greater than 2.5 standard deviations in the least significant difference from the prior study. Least significant differences are defined as follows: Lumbar spine: +/- 0.010 g/cm2 Femoral neck: +/- 0.014 g/cm2 Forearm radius 33%: +/- 0.020 g/cm2 FRAX FRACTURE RISK ASSESSMENT: Risk factors: None. 10 Year Probability Of Fracture Major Osteoporotic: 7.2 % Hip: 0.4 % Comparison population: [place], Race: A major osteoporotic fracture is defined as a fracture of the spine, forearm, hip or shoulder. Definitions: Normal: T-score above -1.0 Osteopenia T-score less than -1.0 and above -2.5 Osteoporosis: T-score <= -2.5 Follow-up Recommendations: Patients without high risk factors for osteoporosis T-score -1.0 to -1.5 - Consider repeat BMD in 5-10 years T-score -1.5 to - 2.0 - Consider repeat BMD in 3-5 years T-score -2.0 to - 2.5 - Consider repeat BMD every 2 years Patients on treatment for osteoporosis 1-2 years after initiation of treatment and every 2 years thereafter DICTATION LOCATION: Location [address] [place] [address] Leticia Esquivel CNM DIAGNOSTIC IMAGING ORDERABL ES Final Result from Last 3 Months or Most Recently Relevant to Health Maintenance Insurance MEDICARE PART A AND B [facility] Care Teams Unified Communications Architect Relationship Specialty Start Date End Date Elijah Kaufman MD [address] [place] [id number] PCP - General Family Practice 02/23/13
--- OUTSIDE RECORDS SUMMARY | 2024-11-12 14:22 | XMS_ITS | Clinical Summary ---
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
--- OUTSIDE RECORDS SUMMARY | 2024-11-12 14:22 | XMS_ITS | Referral Summary ---
Author Organization [facility] Address [address] [place] [address] Care Team Providers Care Pot Liner Name Role Phone Myrna Guzman MD Primary Care Provider Allergies No known active allergies Medications pravastatin (PRAVACHOL) 20 mg tablet take 2 tablet by oral route every day 0 0 03/04/2014 Active amLODIPine (NORVASC) 5 mg tablet Take 1 tablet (5 mg total) by mouth daily 01/22/2023 Active Active Problems Problem Noted Date Diagnosed Date Hyperlipidemia 03/04/2014 Overview (12/27/2016): Hyperlipemia Social History Tobacco Use Types Packs/Day Years Used Date Smoking Tobacco: Never Smokeless Tobacco: Never Alcohol Use Standard Drinks/Week Comments No 0 (1 standard drink = 0.6 oz pur e alcohol) PHQ-2 Answer Date Recorded PHQ-2 Total Score (If total score is 3 or more points, staff should administer the PHQ-9) 0 04/08/2023 Personal Safety Answer Date Recorded Getting School Help Needed Not on file 11/17 Comments No Sex and Gender Information Value Date Recorded Sex Assigned at Not on file 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 Gender Identity Not on file Sexual Orientation Not on file Last Filed Vital Signs Vital Sign Reading Time Taken Comments Blood Pressure 122/80 04/08/2023 2:59 PM CDT Pulse 90 04/08/2023 2:59 PM CDT Temperature - - Respiratory Rate - - Oxygen Saturation - - Inhaled Oxygen Concentration - - Weight 80.6 kg (177 lb 11.2 oz) 04/08/2023 2:59 PM CDT Height 162.6 cm (5' 4 ) 04/08/2023 2:59 PM CDT Body Mass Index 30.5 04/08/2023 2:59 PM CDT Plan of Treatment Not on file Procedures Procedure Name Priority Date/Time Associated Diagnosis Comments SCREENING MAMMOGRAM Schedule Routine, Read Routine (OP Routine) 06/15/2024 9:04 AM CDT DEXA AXIAL SKELETON BONE DENSITY 1 OR MORE SITES Schedule Routine, Read Routine (OP Routine) 05/05/2019 from Last 3 Months or Most Recently Relevant to Health Maintenance Results * Screening Mammogram (06/15/2024 9:04 AM CDT) Anatomical Region Laterality Modality Breast N/A Mammography Historical Provider MD CUELLAR MAMMO PROCEDURES Margoth l Result * Dexa Axial Skeleton Bone Density 1 or 2 Site (05/05/2019) Anatomical Region Laterality Modality Body N/A Radiographic Meenakshi ging Leticia Esquivel NP IMG DXA PROCEDURES Final Result from Last 3 Months or Most Recently Relevant to Health Maintenance Insurance MEDICARE COMMERCIAL GENERIC Care Teams Pot Liner Relationship Specialty Start Date End Date Myrna Guzman MD PCP - General Family Practice 04/08/23
--- OUTSIDE RECORDS SUMMARY | 2024-11-12 14:22 | XMS_ITS ---
Care Plan - [facility] Created on: November 12, 2024 NINA LINK : 1955 Sex: Female Author Organization [facility] Address [address] [place] [address] Phone Care Team Providers Care Long Winder Tender Name Role Phone Unavailable Unavailable Unavailable
--- OUTSIDE RECORDS SUMMARY | 2024-11-12 14:22 | XMS_ITS | Clinical Summary ---
Author Organization [facility] Address [address] [place] [address] Phone Care Team Providers Care Legal Compliance Officer Name Role Phone Unavailable Unavailable Unavailable Reason for Visit and Chief Complaint DEXASCAN Plan of Treatment No Plan of Treatment [...] Location Date Check-In Time Check-Out Time Diagnosis DEXASCAN [facility] TRANSPORTATION AIDE 12/18/2007 2:43PM 4:04PM Clinical Notes Includes: Clinical Notes from this encounter No Clinical Notes Recorded
--- OUTSIDE RECORDS SUMMARY | 2024-11-12 14:22 | XMS_ITS | Clinical Summary ---
Author Organization [facility] Address [address] [place] [address] Phone Care Team Providers Care Project Management Intern Name Role Phone Unavailable Unavailable Unavailable Reason for Visit and Chief Complaint CHART UPDATE Plan of Treatment No Plan of Treatment Recorded Assessments Includes: Assessments from this encounter No Assessments Recorded Medical Equipment - Implanted Devices Includes: Current Devices No Medical Equipment Recorded Medications Includes: Medications discussed during this encounter and other current Medications Past Medications on file Estrace 0.1 MG/GM VA CREA 12/20/2008 - 02/18/2009 Prov ider: Diagnosis: Last Documented On 10/25/2009 8:21AM By MAXIMO SWIFT ; [facility] Medications Administered Includes: Administered Medications from this encounter No Administered Medications Recorded Results Includes: Results discussed during this encounter No Results Recorded For Specified Dates History of Present Illness Includes: History of Present Illness from this encounter HPI NINA LINK is a 54 year old female. - Age at menarche was 15 years old - The interval between the last two periods was 23 days - Menstrual bleeding usually lasts 5 days Social History Description Last Updated Educational level: grade 12 10/25/2009 Last Documented On 0 8:25AM ; [facility] Exercise frequency 2-3 HRS /WK 0 Last Documented On 0 8:25AM ; [facility] Exercising regularly WALKING 10/25/2009 Last Documented On 0 8:25AM ; [facility] Marital history 10/25/2009 Last Documented On 0 8:25AM ; [facility] Tenriism affiliation JEW 0 Last Documented On 0 8:25AM ; [facility] Sexually active 10/25/2009 Last Documented On 0 8:25AM ; [facility] Sexually active with 1 partners in the l ast year 10/25/2009 Last Documented On 0 8:25AM ; [facility] Smoking Status Unknown Medical History Includes: Medical History addressed during this encounter Description Last Updated CYST RUPTURED - OVARIAN LT 10/25/2009 Last Documented On 0 8:25AM ; [facility] 1 miscarriage(s) 10/25/2009 Last Documented On 0 8:25AM ; [facility] 2 living children 10/25/2009 Last Documented On 0 8:25AM ; [facility] A breast self-exam was performed 010 Last Documented On 0 8:25AM ; [facility] A mammogram was performed 10/25/2009 Last Documented On 0 8:25AM ; [facility] A Pap smear was performed 10/25/2009 Last Documented On 0 8:25AM ; [facility] weight: was 9.2 kg 10/25/2009 Last Documented On 0 8:25AM ; [facility] Delivery date 198410/25/2009 Last Documented On 0 8:25AM ; [facility] 3 10/25/2009 Last Documented On 0 8:25AM ; [facility] History of the 2nd : 10/25/2009 Last Documented On 0 8:25AM ; [facility] Last mammogram date: 12/23/08 10/25/2009 Last Documented On 0 8:25AM ; [facility] Last pap smear date 200810/25/2009 Last Documented On 0 8:25AM ; [facility] Type of delivery: VAGINAL 10/25/2009 Last Documented On 0 8:25AM ; [facility] Family History Includes: Family History addressed during this encounter Description Last Updated Family history of Cancer 10/25/2009 Last Documented On 0 8:25AM ; [facility] Review of Systems Includes: Review of Systems [...] Location Date Check-In Time Check-Out Time Diagnosis CHART UPDATE DAFNE MCNAIR-FREDDY,CNM [facility] ENGINEER TECHNICIAN 0 8:21AM 11:59PM Clinical Notes Includes: Clinical Notes from this encounter No Clinical Notes Recorded
--- OUTSIDE RECORDS SUMMARY | 2024-11-12 14:22 | XMS_ITS | Clinical Summary ---
Author Organization [facility] Address [address] [place] [address] Care Team Providers Care Counseling Services Director Name Role Phone Mynra Guzman MD Primary Care Provider Allergies No known active allergies Medications pravastatin (PRAVACHOL) 20 mg tablet take 2 tablet by oral route every day 0 0 03/04/2014 Active amLODIPine (NORVASC) 5 mg tablet Take 1 tablet (5 mg total) by mouth daily 01/22/2023 Active Active Problems Problem Noted Date Diagnosed Date Hyperlipidemia 03/04/2014 Overview (12/27/2016): Hyperlipemia Surgical History Surgery Date Site/Laterality Comments OTHER SURGICAL HISTORY 1979 : OTHER SURGICAL HISTORY 1982 : spontaneous OTHER SURGICAL HISTORY 1984 : TOTAL ABDOMINAL HYSTERECTOMY W/ BILATERAL SALPINGOOPHORECTOMY 2004 ABISAI with BSO OTHER SURGICAL HISTORY 2012 Right Abnormal mammogram: breast biopsy OTHER SURGICAL HISTORY D & C Medical History Medical History Date Comments Hx Other Medical 1979 ; Outc ome: 40 week 6 lb(s) 9 oz Male Hx Other Medical 1982 ; Comm ents: D & C; Outcome: Unknown sex Hx Other Medical 1984 ; Outc ome: 40 week 9 lb(s) 2 oz Female Hx Other Medical Abnormal mammog serena; Outcome: fibrocyst Family History Medical History Relation Name Comments Colon cancer Father Cancer, colon; Cause of : Cancer, colon Lung cancer Father Cancer, lung; Hyperlipidemia Mother Hyperlipidemi a; Hypertension Mother Hypertension; Other Mother Heart valve rep lacement; Relation Name Status Comments Father Mother Social History Tobacco Use Types Packs/Day Years [...] on file 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 Gender Identity Not on file Sexual Orientation Not on file Obstetrics History Para Term AB IAB SAB Ectopic Multiple Livin g Live Births 3 2 2 2 Date Outcome GA Total Labor Labor//3rd Weight Sex Type Anes PTL Marie A1 A5 Name Clin Para Para Last Filed Vital Signs Vital Sign Reading [...] 04/08/2023 2:59 PM CDT Plan of Treatment Health Maintenance Due Date Last Done Comments Colon Cancer Screening-Colonoscopy 1955 Fall Risk Assessment 1955 Hepatitis C Screening 1955 Hepatitis B Screening 01/18/1974 Pneumococcal vaccine 65+ (1 of 1 - PCV) 01/18/2006 Zoster Vaccine (1 of 2) 01/18/2006 Well Visit 65+ 01/18/2021 10/05/2019, 04/2019, 09/27/2017 Osteoporosis Screening-Bone Density Scan 05/05/2021 05/05/2019 DTaP/Tdap/Td Vaccine (2 - Td or Tdap) 12/29/2022 12/29/2012 Depression Screening 04/08/2024 04/08/2023, 03/07/2021, 09/27/2017 Influenza Vaccine (#1) 2024 07/12/2017, 2013 Breast Cancer Screening-Mammogram 06/15/2025 06/15/2024, 06/04/2023, 03/15/2022, Additional history exists Procedures Procedure Name Priority Date/Time Associated Diagnosis [...] Laterality Modality Breast N/A Mammography Historical Provider IMG MAMMO PROCEDURES Margoth l Result * Dexa Axial Skeleton Bone Density 1 or 2 Site (05/05/2019) Anatomical Region Laterality Modality Body N/A Radiographic Meenakshi ging Leticia Esquivel NP IMG DXA PROCEDURES Final Result from Last 3 Months or Most Recently Relevant to Health Maintenance Insurance MEDICARE COMM[employer]CIAL GENERIC Care Teams Counseling Services Director Relationship Specialty Start Date End Date Myrna Guzman MD PCP - General Family Practice 04/08/23
--- OUTSIDE RECORDS SUMMARY | 2024-11-12 14:22 | XMS_ITS | Referral Summary ---
Author Organization [facility] Address [address] [address] Care Team Providers Care Contractor Broomcorn Threshing Name Role Phone Unavailable Primary Care Provider Unavailabl e Source Comments [facility],non-owned Affiliates and Associated Physician Practices is amultiple site organization consisting of ambulatory clinics and hospital sitesin [place], [place], [place] and [place]. This disclosure is being madepursuant to the Care Everywhere program and may not contain all information available regarding this patient. Last updated 18.[facility] Social History Tobacco Use Types Packs/Day Years Used Date Smoking Tobacco: Never Assessed Sex and Gender Information Value Date Recorded Sex Assigned at Not on file Gender Identity Not on file Sexual Orientation Not on file Plan of Treatment Not on file
--- OUTSIDE RECORDS SUMMARY | 2024-11-12 14:22 | XMS_ITS ---
Author Organization [facility] Address [address] [place] [address] Phone Care Team Providers Care Box Office Clerk Name Role Phone Unavailable Unavailable Unavailable Plan of Treatment Findings Encounter Date Ordered follow-up visit 1 ye ar or as needed NURSE MIDWIFE/CLINICAL INSTRUCTOR EXAM with DAFNE ZHU CNM 12/30/2009 Last Documented On 0 9:40AM ; [facility] Instructions to patient Instructions for patient : B reast Self Exam discussed Last Documented On 0 9:20AM ; [facility] Education and Decision Aids were provided during visit for: Patient Education: Daily jessica cium and vitamin D Last Documented On 0 9:20AM ; [facility] Patient Education: weight be aring exercise Last Documented On 0 9:20AM ; [facility] Handout for self breast exam given Last Documented On 0 9:20AM ; [facility] Kegals handout given Last Documented On 0 9:20AM ; [facility] Calcium handout given Last Documented On 0 9:20AM ; [facility] BMI handout given Last Documented On 0 9:20AM ; [facility] Assessments Includes: Assessments for all patient encounters Findings Encounter Date Routine pelvic exam NURSE MIDWIFE/CLINICAL INSTRUCTOR EXAM with DAFNE ZHU CNM 12/30/2009 Last Documented On 0 9:40AM ; [facility] Instructions Includes: Instructions for all patient encounters Instructions to patient Instructions for patient : B reast Self Exam discussed Last Documented On 0 9:20AM ; [facility] Education and Decision Aids were provided during visit for: Patient Education: Daily jessica cium and vitamin D Last Documented On 0 9:20AM ; [facility] Patient Education: weight be aring exercise Last Documented On 0 9:20AM ; [facility] Handout for self breast exam given Last Documented On 0 9:20AM ; [facility] Kegals handout given Last Documented On 0 9:20AM ; [facility] Calcium handout given Last Documented On 0 9:20AM ; [facility] BMI handout given Last Documented On 0 9:20AM ; [facility] Medical Equipment - Implanted Devices Includes: Current and historical Devices No Medical Equipment Recorded Medications Includes: Current and historical Medications Past Medications on file Estrace 0.1 MG/GM [facility] 12/20/2008 - 02/18/2009 Prov ider: Diagnosis: Last Documented On 10/25/2009 8:21AM By MAXIMO SWIFT ; [facility] Medications Administered Includes: Administered Medications in patient's chart No Administered Medications Recorded Results Includes: Results from 11/12/2023 through 11/12/2024 No Results Recorded For Specified Dates History of Present Illness History of Present Illness not supported for this document type No History of Present Illness Recorded Social History Description Last Updated Non-smoker 12/30/2009 Last Documented On 0 9:40AM ; [facility] Educational level: grade 12 10/25/2009 Last Documented On 0 8:25AM ; [facility] Exercise frequency 2-3 HRS /WK 0 Last Documented On 0 8:25AM ; [facility] Exercising regularly WALKING 10/25/2009 Last Documented On 0 8:25AM ; [facility] Marital history 10/25/2009 Last Documented On 0 8:25AM ; [facility] Adventist affiliation [employer] 0 Last Documented On 0 8:25AM ; [facility] Sexually active 10/25/2009 Last Documented On 0 8:25AM ; [facility] Sexually active with 1 partners in the l ast year 10/25/2009 Last Documented On 0 8:25AM ; [facility] Smoking Status Unknown Procedures and Surgical History Surgical History Last Updated History of hysterectomy 200412/30/2009 Last Documented On 0 9:40AM ; [facility] History of total abdominal hysterectomy 2004 Dr. Rudd 12/30/2009 Last Documented On 0 9:40AM ; [facility] No history of appendectomy 12/30/2009 Last Documented On 0 9:40AM ; [facility] No history of cholecystectomy 12/30/2009 Last Documented On 0 9:40AM ; [facility] No history of Loop electrode excision of cervix (LEEP) 12/30/2009 Last Documented On 0 9:40AM ; [facility] No history of tubal ligation 12/30/2009 Last Documented On 0 9:40AM ; [facility] No history of vaginal hysterectomy 12/30 Last Documented On 0 9:40AM ; [facility] Surgical / procedural history ruptured o varian cyst; [facility] 12/30/2009 Last Documented On 0 9:40AM ; [facility] Medical History Includes: Medical History in patient's chart Description Last Updated Aborta 1 12/30/2009 Last Documented On 0 9:40AM ; [facility] Last mammogram date: 12/23/2008 12/23/08 Last Documented On 0 9:40AM ; [facility] Last pap smear date 12/20/2008 12/30/2009 Last Documented On 0 9:40AM ; [facility] LMP: 200412/30/2009 Last Documented On 0 9:40AM ; [facility] No history of cervical dysplasia 010 Last Documented On 0 9:40AM ; [facility] No history of dysfunctional uterine blee ding 12/30/2009 Last Documented On 0 9:40AM ; [facility] No history of human papilloma virus infe ction 12/30/2009 Last Documented On 0 9:40AM ; [facility] Para 2 12/30/2009 Last Documented On 0 9:40AM ; [facility] comments: 2 vaginal births; 1 SAB 12/30/2009 Last Documented On 0 9:40AM ; [facility] Result: normal 12/30/2009 Last Documented On 0 9:40AM ; [facility] Result: normal 12/30/2009 Last Documented On 0 9:40AM ; [facility] CYST RUPTURED - OVARIAN LT 10/25/2009 Last Documented On 0 8:25AM ; [facility] 1 miscarriage(s) 10/25/2009 Last Documented On 0 8:25AM ; [facility] 2 living children 10/25/2009 Last Documented On 0 8:25AM ; [facility] A breast self-exam was performed 010 Last Documented On 0 8:25AM ; [facility] A mammogram was performed 10/25/2009 Last Documented On 0 8:25AM ; [facility] A Pap smear was performed 10/25/2009 Last Documented On 0 8:25AM ; [facility] weight: was 9.2 kg 10/25/2009 Last Documented On 0 8:25AM ; [facility] Delivery date 1984 10/25/2009 Last Documented On 0 8:25AM ; [facility] 3 10/25/2009 Last Documented On 0 8:25AM ; [facility] History of the 2nd : 10/25/2009 Last Documented On 0 8:25AM ; [facility] Type of delivery: VAGINAL 10/25/2009 Last Documented On 0 8:25AM ; [facility] Family History Includes: Family History in patient's chart Description Last Updated Family history of malignant neoplasm of the large intestine Father 12/30/2009 Last Documented On 0 9:40AM ; [facility] No family history of diabetes mellitus 0 12/30/2009 Last Documented On 0 9:40AM ; [facility] No family history of malignant female br east neoplasm 12/30/2009 Last Documented On 0 9:40AM ; [facility] No family history of malignant neoplasm of the ovary 12/30/2009 Last Documented On 0 9:40AM ; [facility] Family history of Cancer 10/25/2009 Last Documented On 0 8:25AM ; [facility] Review of Systems Review of Systems not supported for this document type No Review of Systems Recorded Mental Status No Mental Status Recorded Functional Status No Functional Status Recorded Physical Exam Physical Exam not supported for this document type No Physical Exam Recorded Allergies Includes: Active, inactive, and resolved Allergies No Known Allergies Clinical Notes Includes: Signed Clinical Notes starting from 10/12/2022 No Clinical Notes Recorded
--- OUTSIDE RECORDS SUMMARY | 2024-11-12 14:22 | XMS_ITS | Clinical Summary ---
Author Organization [facility] Address [address] [place] [address] Phone Care Team Providers Care Dough Scaler And Mixer Name Role Phone Unavailable Unavailable Unavailable Reason for Visit and Chief Complaint gynecologic annual exam - The Chief Complaint is: annual Plan of Treatment - SCREEN MAMMOGRAM NEC - Last Documented On 12/30/2009 9:40AM ; [facility] Radiology/*MAMMOGRAM: Mammogram - Last Documented On 12/30/2009 9:40AM ; [facility] ? Cervical Pap SmearIn office procedures/*Clia Waived Labs: Pap Smear Taken - Last Documented On 12/30/2009 9:40AM ; [facility] ? SCREEN MAL NEOP-RECTUMIn office procedures/*Clia Waived Labs: Fecal Occult Blood - Last Documented On 12/30/2009 9:40AM ; [facility] - Follow-up visit 1 year or as needed - Last Documented On 12/30/2009 9:40AM ; [facility] Pending Tests Order Diagnosis Results Due Ordering Andreea torrez Radiology @ other - *MAMMOGRAPHY Mammogram SCREEN MAMMOGRAM NEC 01/13/10 [facility] Last Documented On 0 9:35AM ; [facility] In office procedures - *Clia Waived Labs Fecal Occult Blood SCREEN MAL NEOP-RECTUM 01/13/10 DAFNE PEREZ GABY-,CNM Last Documented On 0 9:34AM ; [facility] In office procedures - *Clia Waived Labs Pap Smear Taken SCREEN MAL NEOP-CERVIX 01/13/10 DAFNE PEREZ [facility]-,CNM Last Documented On 0 9:34AM ; [facility] Instructions to patient Instructions for patient : B reast Self Exam discussed Last Documented On 0 9:20AM ; [facility] Education and Decision Aids were provided during visit for: Patient Education: Daily jessica cium and vitamin D Last Documented On 0 9:20AM ; [facility] Patient Education: weight be aring exercise Last Documented On 0 9:20AM ; [facility] Handout for self breast exam given Last Documented On 0 9:20AM ; [facility] Kegals handout given Last Documented On 0 9:20AM ; [facility] Calcium handout given Last Documented On 0 9:20AM ; [facility] BMI handout given Last Documented On 0 9:20AM ; [facility] Assessments Includes: Assessments from this encounter Findings - Routine pelvic exam - Last Documented On 12/30/2009 9:40AM ; [facility] Instructions Includes: Instructions from this encounter Instructions to patient Instructions for patient : B reast Self Exam discussed Last Documented On 0 9:20AM ; [facility] Education and Decision Aids were provided during visit for: Patient Education: Daily jessica cium and vitamin D Last Documented On 0 9:20AM ; [facility] Patient Education: weight be aring exercise Last Documented On 0 9:20AM ; [facility] Handout for self breast exam given Last Documented On 0 9:20AM ; [facility] Kegals handout given Last Documented On 0 9:20AM ; [facility] Calcium handout given Last Documented On 0 9:20AM ; [facility] BMI handout given Last Documented On 0 9:20AM ; [facility] Medical Equipment - Implanted Devices Includes: Current Devices No Medical Equipment Recorded Medications Includes: Medications discussed during this encounter and other current Medications Past Medications on file Estrace 0.1 MG/GM [facility] 12/20/2008 - 02/18/2009 Prov ider: Diagnosis: Last Documented On 10/25/2009 8:21AM By MAXIMO SWIFT ; [facility] Medications Administered Includes: Administered Medications from this encounter No Administered Medications Recorded Vital Signs Includes: Vital Signs from this encounter Vital Name 12/30/2009 08:30A Blood Pressure Sitting L 130/82 BP Cuff Size Regular Height (in) 64.5 Weight (lb) 173 Body Mass Index (kg/m2) 29.2 Body Surface Area (m2) 1.8 Last Documented: On 12/30/2009 8:33AM ; [facility] Results Includes: Results discussed during this encounter No Results Recorded For Specified Dates History of Present Illness Includes: History of Present Illness from this encounter RAUL LINK is a 54 year old female. The patient presents for an annual exam. See details below. - Feeling fine. - No pelvic pain - No previous history of pelvic pain - No vaginal dryness - No unexplained vaginal bleeding - No menopausal concerns - No perimenopausal concerns - No reproductive system complaints - No vaginal discharge - Hot flashes occasionally - No sexual complaints Social History Description Last Updated Non-smoker 12/30/2009 Last Documented On 0 9:40AM ; [facility] Educational level: grade 12 10/25/2009 Last Documented On 0 8:31AM ; [facility] Exercise frequency 2-3 HRS /WK 0 Last Documented On 0 8:31AM ; [facility] Exercising regularly WALKING 10/25/2009 Last Documented On 0 8:31AM ; [facility] Marital history 10/25/2009 Last Documented On 0 8:31AM ; [facility] Faith affiliation [employer] 0 Last Documented On 0 8:31AM ; [facility] Sexually active 10/25/2009 Last Documented On 0 8:31AM ; [facility] Sexually active with 1 partners in the l ast year 10/25/2009 Last Documented On 0 8:31AM ; [facility] Smoking Status Unknown Procedures and Surgical History Includes: Procedures from this encounter Procedures Code Diagnosis Performing Provider Service L ocation Service Date a fecal occult blood test was negative 19120 Last Documented On 0 9:20AM ; [facility] normal history of Pap smear of cervix Last Documented On 0 8:39AM ; [facility] Surgical History Last Updated History of hysterectomy 200412/30/2009 Last Documented On 0 9:40AM ; [facility] History of total abdominal hysterectomy 2004 Dr. Rudd 12/30/2009 Last Documented On 0 9:40AM ; [facility] No history of appendectomy 12/30/2009 Last Documented On 0 9:40AM ; [facility] No history of cholecystectomy 12/30/2009 Last Documented On 0 9:40AM ; [facility] No history of Loop electrode excision of cervix (LEEP) 12/30/2009 Last Documented On 0 9:40AM ; [facility] No history of tubal ligation 12/30/2009 Last Documented On 0 9:40AM ; [facility] No history of vaginal hysterectomy 12/30 Last Documented On 0 9:40AM ; [facility] Surgical / procedural history ruptured o varian cyst; [facility] 12/30/2009 Last Documented On 0 9:40AM ; [facility] Medical History Includes: Medical History addressed during this encounter Description Last Updated Aborta 1 12/30/2009 Last Documented On 0 9:40AM ; [facility] Last mammogram date: 12/23/2008 12/23/08 Last Documented On 0 9:40AM ; [facility] Last pap smear date 12/20/2008 12/30/2009 Last Documented On 0 9:40AM ; [facility] LMP: 200412/30/2009 Last Documented On 0 9:40AM ; [facility] No history of cervical dysplasia 010 Last Documented On 0 9:40AM ; [facility] No history of dysfunctional uterine blee ding 12/30/2009 Last Documented On 0 9:40AM ; [facility] No history of human papilloma virus infe ction 12/30/2009 Last Documented On 0 9:40AM ; [facility] Para 2 12/30/2009 Last Documented On 0 9:40AM ; [facility] comments: 2 vaginal births; 1 SAB 12/30/2009 Last Documented On 0 9:40AM ; [facility] Result: normal 12/30/2009 Last Documented On 0 9:40AM ; [facility] Result: normal 12/30/2009 Last Documented On 0 9:40AM ; [facility] CYST RUPTURED - OVARIAN LT 10/25/2009 Last Documented On 0 8:31AM ; [facility] 1 miscarriage(s) 10/25/2009 Last Documented On 0 8:31AM ; [facility] 2 living children 10/25/2009 Last Documented On 0 8:31AM ; [facility] A breast self-exam was performed 010 Last Documented On 0 8:31AM ; [facility] A mammogram was performed 10/25/2009 Last Documented On 0 8:31AM ; [facility] A Pap smear was performed 10/25/2009 Last Documented On 0 8:31AM ; [facility] weight: was 9.2 kg 10/25/2009 Last Documented On 0 8:31AM ; [facility] Delivery date 1984 10/25/2009 Last Documented On 0 8:31AM ; [facility] 3 10/25/2009 Last Documented On 0 8:31AM ; [facility] History of the 2nd : 10/25/2009 Last Documented On 0 8:31AM ; [facility] Type of delivery: VAGINAL 10/25/2009 Last Documented On 0 8:31AM ; [facility] Family History Includes: Family History addressed during this encounter Description Last Updated Family history of malignant neoplasm of the large intestine Father 12/30/2009 Last Documented On 0 9:40AM ; [facility] No family history of diabetes mellitus 0 12/30/2009 Last Documented On 0 9:40AM ; [facility] No family history of malignant female br east neoplasm 12/30/2009 Last Documented On 0 9:40AM ; [facility] No family history of malignant neoplasm of the ovary 12/30/2009 Last Documented On 0 9:40AM ; [facility] Family history of Cancer 10/25/2009 Last Documented On 0 8:31AM ; [facility] Review of Systems Includes: Review of Systems from this encounter Systemic: No recent weight change. Head: No headache. Eyes: No vision problems. Otolaryngeal: No hearing loss and no hoarseness. Cardiovascular: No chest pain or discomfort. Pulmonary: No dyspnea. Gastrointestinal: No abdominal pain and no melena. No diarrhea and no constipation. Genitourinary: No dysuria and no stress incontinence. Musculoskeletal: No back pain and no localized joint pain. Neurological: No numbness. Psychological: No depression. Skin: No skin lesions. Mental Status Includes: Mental Status from this encounter No Mental Status Recorded Functional Status Includes: Functional Status from this encounter No Functional Status Recorded Physical Exam Includes: Physical Exam from this encounter Allergies Includes: Active Allergies No Known Allergies Encounters Encounter Provider Location Date Check-In Time Check-Out Time Diagnosis CLAIM INVESTIGATOR EXAM DAFNE HZU,CNM [facility] MEAL MILLER 0 8:10AM 9:34AM Routine Pelvic Exam Clinical Notes Includes: Clinical Notes from this encounter No Clinical Notes Recorded
== END 2024-11-12 14:14 | disposition home or self-care (01) ==
LOC: ANHGOSHLAB 14:15
PROVIDERS: PCP Family Medicine; Visit Provider Family Medicine
DX: N39.0 Urinary tract infection, site not specified (principal)
CPT/HCPCS: 87086

== ENCOUNTER 2024-11-23 09:07 | Emergency (ER) | payer MEDICARE, SELFPAY ==
[2024-11-23 09:15] VITALS: BP 152/72; PULSE 97; RESP 18; TEMP 37.1; O2SAT 100
--- NOTE | 2024-11-23 09:27 | ED.FEMALEGU ---
HPI - Female Genitourinary General Chief complaint: Urogenital-Female Stated complaint: Yeast Infection Symptoms Time Seen by Provider: 11/23/24 09:27 Source: patient and old records reviewed Mode of arrival: ambulatory Limitations: no limitations History of Present Illness HPI Narrative: Juanita is a 69 year old female patient presenting to the clinic today with complaints a possible yeast infection. She reports that she called her PCP last week stating that she thought she had a urinary tract infection as she was having burning with urination, itching, and urgency. PCP did an outpatient urinalysis and started her on Macrobid at that time. PCP called 3 days later and told her that her urinalysis was negative and to stop taking the Macrobid. States she has taken 3 days of the Macrobid prior to discontinuing. States she still having some itching and burning in the vaginal area with slight discharge. Denies any vaginal odor. Denies any new sexual partners and she is not concerned for any STIs. She denies any fevers, chills, body aches, back pain, or abdominal pain. History of total hysterectomy. Related Data Home Medications ?Medication ?Instructions ?Recorded ?Confirmed ?Last Taken ?Type cholecalciferol (vitamin D3) 50 50 mcg PO DAILY 06/01/22 06/09/24 Unknown History mcg (2,000 unit) tablet omega 9-tyb-hnd-fish oil 100 cap PO 06/07/23 06/09/24 Unknown History mg-160 mg-1,000 mg capsule (Fish Oil) calcium 600 mg capsule mg PO 11/30/23 06/09/24 Unknown History Allergies Allergy/AdvReac Type Severity Reaction Status Date / Time No Known Allergies Allergy Verified 11/23/24 09:16 Review of Systems Review of Systems: Pertinent positives per HPI. Patient denies any fever, chills, rash, headache, visual changes, dizziness, cough, runny nose, sore throat, shortness of breath, chest pain, palpitations, nausea, vomiting, diarrhea, constipation, abdominal pain, or any urinary issues. [facility] Past Medical History Medical History Osteopenia (~07/2023) Vitamin D deficiency Essential (primary) hypertension Family history of colon cancer in father History of colon polyps Dyslipidemia 01/30/18 Surgical History Surgical History History of total hysterectomy (Unknown) Family History Family History Other Carcinoma of colon Family history of coronary artery disease Family history of hypercholesterolemia Social History Social History Smoking status: Never smoker Second hand tobacco smoke exposure: No Alcohol intake: never Substance use: never Substance use type: does not use Lack of Transportation: No Lack of Food: Never True Current Housing: I Have Housing Concerned About Future Housing: No Difficulty Paying Gas/Electric Bills: No Difficulty Paying for Meds: No Currently Unemployed: No Education: High School Diploma/GED Living arrangements: with family Additional living arrangements comments: Occupation/Education: retired Gender identity (if verbalized by the patient): Female Sexual Orientation (if Verbalized by the Patient): Straight or Heterosexual Spiritual care concerns: No Agree to blood products: Yes Comments At the time of my signature, I reviewed and agree with the nursing past medical, surgical, social, and family history. There is no relevant family history pertinent to the patient complaint. Exam Narrative: General: Well-developed, well nourished, in no apparent distress Head: Normocephalic, atraumatic. Cardio: Regular rate and rhythm, s1 and s2 normal, no murmur appreciated. Resp: Clear to auscultation bilaterally, no rhonchi, rales, wheezing or rubs. Abdomen: Soft, pliable, bowel sounds present in all quadrants, non-tender to palpation, no CVAT tenderness. : Pelvic exam performed with (Sherry CHO) at bedside. Verbal consent obtained from patient. Normal external female genitalia without lesions or masses, Urinary meatus: patent without discharge, Vagina: No lesions or masses, small amount of white vaginal discharge Course Course Emergency Course: Portions of this record may have been created with voice recognition software. Level of Care: Express Care Visit Vital Signs Vital signs: Vital Signs Temperature 37.1 C 11/23/24 09:15 Pulse Rate 97 11/23/24 09:15 Respiratory Rate 18 11/23/24 09:15 Blood Pressure 152/72 H 11/23/24 09:15 Pulse Oximetry 100 11/23/24 09:15 Oxygen Delivery Room Air 11/23/24 09:15 Temperature 37.1 C 11/23/24 09:15 Pulse Rate 97 11/23/24 09:15 Respiratory Rate 18 11/23/24 09:15 Blood Pressure 152/72 H 11/23/24 09:15 Pulse Oximetry 100 11/23/24 09:15 Oxygen Delivery Room Air 11/23/24 09:15 Vital signs reviewed MDM - Female Genitourinary MDM Narrative Medical decision making narrative: At the time of visit patient is resting comfortably on the exam table. Patient appears to be nontoxic. Labs: Urinalysis dip was performed and shows 1+ leukocytes, 1+ blood, 1+ protein. Urine culture was ordered. Vaginal swab for obtain to test for general culture in BV was performed sent to the lab. Plan: I suspect patient may have a vaginal yeast infection as well as a urinary tract infection. Prescription for 5 days of Bactrim was ordered as well as Diflucan. Supportive measures were discussed with the patient and they voiced understanding discharge instructions and agrees to treatment plan. Return precautions reviewed Differential Diagnosis Differential diagnosis: Likely urinary tract infection, bacterial vaginosis, vaginitis and cystitis Lab Data Labs: Lab Results 11/23/24 11/23/24 Range/Units 09:38 09:48 POC Urine Color Yellow POC Urine Clarity Cloudy POC Urine pH 6.0 POC Ur Specif [place] 1.025 POC Urine Protein 1+ (Negative) POC Ur Glucose (UA) Negative (Negative) POC Urine Ketones Negative (Negative) POC Urine Blood 1+ (Negative) POC Urine Nitrite Negative (Negative) POC Urine Bilirubin Negative (Negative) POC Urine Urobilinogen 0.2 POC U Leukocyte Esteras 1+ (Negative) Bact Vaginosis Panel Pending Discharge Plan Discharge Clinical Impression: Itching of vagina UTI (urinary tract infection) Qualifiers: Urinary tract infection type: acute cystitis Hematuria presence: with hematuria Qualified Code(s): N30.01 - Acute cystitis with hematuria Patient Disposition: Home, Self-Care Condition: Stable Instructions: Antibiotic Form, Yeast Infection (ED), Vaginal Discharge (ED), Urinary Tract Infection in Older Adults (ED) Additional Instructions: Urinalysis positive for leukocytes, protein, and blood. We will send urine for culture Vaginal swabs obtained and sent to the lab to test for yeast and bacterial vaginosis Take Bactrim and fluconazole as prescribed. May take fluconazole today and 2nd dose when you finish antibiotics is still having vaginal itching symptoms Increase fluids and stay well hydrated Wipe front to back. May use wet wipes. Avoid tub baths If sexually active- pee before and after intercourse. Wear cotton panties Avoid tight clothing up against the genitals Follow up with your PCP in 1 week if symptoms persist. Patient Language: Greenlandic Prescriptions: New sulfamethoxazole-trimethoprim [Bactrim DS] 800-160 mg tablet 1 tablet PO Q12H 5 Days Qty: 10 0RF fluconazole 150 mg tablet 150 mg PO ONCE Qty: 2 0RF Rx Instructions: as a single dose. May repeat in 72 hours if needed. No Action calcium 600 mg Capsule PO cholecalciferol (vitamin D3) 50 mcg (2,000 unit) tablet 50 mcg PO DAILY Fish Oil 100-160-1,000 mg capsule PO pravastatin 40 mg tablet 40 mg PO QHS Qty: 90 1RF amlodipine 5 mg tablet 5 mg PO DAILY Qty: 90 1RF Follow-up/Referrals: PHYSICIAN,TERMINAL SUPERVISOR [Primary Care Provider] - Time of Disposition: 09:52 Quality NIHSS Nursing Documentation ED NIHSS nursing documentation: reviewed/agree
[2024-11-23 09:42] LABS: EDUAAPPEAR Cloudy; EDUABILI Negative (Negative); EDUABLOOD 1+ (Negative); EDUACOLOR1 Yellow; EDUAGLUCOSE Negative (Negative); EDUAKETONE Negative (Negative); EDUALEUKO 1+ (Negative); EDUANITRATE Negative (Negative); EDUAPROTEIN 1+ (Negative); EDUASPGRAVITY 1.025; EDUAUROBILI 0.2
[2024-11-24 14:54] LABS: Bacterial Vaginosis NEGATIVE (NEGATIVE)
== END 2024-11-23 09:54 | disposition home or self-care (01) ==
PROVIDERS: Emergency Provider Nurse Practitioner Family
DX: N89.8 Other specified noninflammatory disorders of vagina (principal); N30.01 Acute cystitis with hematuria; I10 Essential (primary) hypertension; E78.5 Hyperlipidemia, unspecified; M85.80 Other specified disorders of bone density and structure, unspecified site; E66.9 Obesity, unspecified; Z68.32 Body mass index [BMI] 32.0-32.9, adult
CPT/HCPCS: 81003; 81513; 87070; 87086; 87186; 99213; G0463

== ENCOUNTER 2024-12-15 09:38 | Outpatient (CLI) | payer MEDICARE, SELFPAY ==
--- OUTSIDE RECORDS SUMMARY | 2024-12-15 10:53 | XMS_ITS | Clinical Summary ---
Author Organization [facility] Address [address] [place] [address] Care Team Providers Care Special Service Officer Name Role Phone Unavailable Primary Care Provider Unavailabl e Source Comments [facility] [employer],non-owned Affiliates and Associated Physician Practices is amultiple site organization consisting of ambulatory clinics and hospital sitesin [place], [place], [place] and [place]. This disclosure is being madepursuant to the Care Everywhere program and may not contain all information available regarding this patient. Last updated 18.[facility] [employer] Social History Tobacco Use Types Packs/Day Years [...] to complete this topic MENINGOCOCCAL (Group B) VACC INE SHARED DECISION-MAKING Aged Out No longer eligibl e based on patient's age to complete this topic MENINGOCOCCAL GROUPS A/C/Y/W VACCINE Aged Out No longer eligible b ased on patient's age to complete this topic
--- OUTSIDE RECORDS SUMMARY | 2024-12-15 10:53 | XMS_ITS | Clinical Summary ---
Author Organization [facility] Address [address] [place] [address] Phone Care Team Providers Care General Road Supervisor Name Role Phone Unavailable Unavailable Unavailable Reason for Visit and Chief Complaint DIRECTOR VOICE EXAM Plan of Treatment No Plan of [...] Location Date Check-In Time Check-Out Time Diagnosis DIRECTOR VOICE EXAM SARAH TREJO [facility] BRAKE MECHANIC 8 9:38AM 10:50AM Clinical Notes Includes: Clinical Notes from this encounter No Clinical Notes Recorded
--- OUTSIDE RECORDS SUMMARY | 2024-12-15 10:54 | XMS_ITS | Clinical Summary ---
Author Organization [facility] Address [address] [place] [address] Phone Care Team Providers Care Vice President Tax Name Role Phone Unavailable Unavailable Unavailable Reason for Visit and Chief Complaint COUNSELOR SUPERVISOR EXAM Plan of Treatment No Plan of [...] Location Date Check-In Time Check-Out Time Diagnosis COUNSELOR SUPERVISOR EXAM DAFNE MCNAIR-FREDDY,REINA [facility] AUDITOR 9 8:38AM 9:43AM Clinical Notes Includes: Clinical Notes from this encounter No Clinical Notes Recorded
--- OUTSIDE RECORDS SUMMARY | 2024-12-15 10:54 | XMS_ITS | Clinical Summary ---
Author Organization [facility] Address [address] [place] [address] Phone Care Team Providers Care Parking Patroller Name Role Phone Unavailable Unavailable Unavailable Reason [...] Date Check-In Time Check-Out Time Diagnosis DEXASCAN [facility] SAIL FINISHER HAND 12/18/2007 2:43PM 4:04PM Clinical Notes Includes: Clinical Notes from this encounter No Clinical Notes Recorded
--- OUTSIDE RECORDS SUMMARY | 2024-12-15 10:54 | XMS_ITS | Clinical Summary ---
Author Organization [facility] Address [address] [place] [address] Phone Care Team Providers Care Steerer Name Role Phone Elijah Kaufman MD Primary Care Provider [phone] Allergies No known active allergies Medications No known medications Active Problems Patient Care Coordination No te Formatting of this note migh t be different from the original. Primary Care: Elijah Kaufman MD Referring Provider: Rodney Dc MD [address] [place] [address] [place] [address] Other: wesley esquivel bilingual call center representative Problem Noted Date Diagnosed Date Mammographic calcification [...] Colonography Q 5 years 01/18/2001 PNEUMOCOCCAL VACCINE 50+ YEA RS (1 of 1 - PCV) [...] found in the Imaging Section of the [facility] EMR. Normal BMD. Comments: L3 and [...] thereafter DICTATION LOCATION: Location 1 - [facility] Narrative 05/05/2019 10:47 AM CDT EXAMINATION: [...] Right Total Femur: T-Score: -0.7 Procedure Note Harlye Soto MD - 05/05/2019 EXAMINATION: BONE DENSITY [...] found in the Imaging Section of the [facility] EMR. Normal BMD. Comments: L3 and [...] every 2 years thereafter DICTATION LOCATION: Location [address] [place] [address] Leticia Esquivel CNM DIAGNOSTIC IMAGING ORDERABL ES Final Result from Last 3 Months or Most Recently Relevant to Health Maintenance Insurance MEDICARE PART A AND B [facility] Care Teams Steerer Relationship Specialty Start Date End Date Elijah Kaufman MD [address] [place] [address] PCP - General Family Practice 02/23/13
--- OUTSIDE RECORDS SUMMARY | 2024-12-15 10:54 | XMS_ITS | Clinical Summary ---
Author Organization [facility] Address [address] [place] [address] Phone Care Team Providers Care Greens Keeper Name Role Phone Unavailable Unavailable Unavailable Reason [...] On 10/25/2009 8:21AM By MAXIMO SWIFT ; [facility] Medications Administered Includes: Administered Medications [...] 10/25/2009 Last Documented On 0 8:25AM ; [facility] Exercise frequency 2-3 HRS /WK 0 Last Documented On 0 8:25AM ; [facility] Exercising regularly WALKING 10/25/2009 Last Documented On 0 8:25AM ; [facility] Marital history 10/25/2009 Last Documented On 0 8:25AM ; [facility] Rastafarian affiliation [employer] 0 Last Documented On 0 8:25AM ; [facility] Sexually active 10/25/2009 Last Documented On 0 8:25AM ; [facility] Sexually active with 1 partners in the l ast year 10/25/2009 Last Documented On 0 8:25AM ; [facility] Smoking Status Unknown Medical History Includes: Medical History addressed during this encounter Description Last Updated CYST RUPTURED - OVARIAN LT 10/25/2009 Last Documented On 0 8:25AM ; [facility] 1 miscarriage(s) 10/25/2009 Last Documented On 0 8:25AM ; [facility] 2 living children 10/25/2009 Last Documented On 0 8:25AM ; [facility] A breast self-exam was performed 010 Last Documented On 0 8:25AM ; [facility] A mammogram was performed 10/25/2009 Last Documented On 0 8:25AM ; [facility] A Pap smear was performed 10/25/2009 Last Documented On 0 8:25AM ; [facility] weight: was 9.2 kg 10/25/2009 Last Documented On 0 8:25AM ; [facility] Delivery date 198410/25/2009 Last Documented On 0 8:25AM ; [facility] 3 10/25/2009 Last Documented On 0 8:25AM ; [facility] History of the 2nd : 10/25/2009 Last Documented On 0 8:25AM ; [facility] Last mammogram date: 12/23/08 10/25/2009 Last Documented On 0 8:25AM ; [facility] Last pap smear date 200810/25/2009 Last Documented On 0 8:25AM ; [facility] Type of delivery: VAGINAL 10/25/2009 Last Documented On 0 8:25AM ; [facility] Family History Includes: Family History addressed during this encounter Description Last Updated Family history of Cancer 10/25/2009 Last Documented On 0 8:25AM ; [facility] Review of Systems Includes: Review [...] Check-Out Time Diagnosis CHART UPDATE DAFNE MCNAIR-FREDDY,CNM [facility] SAWMILL OR TIMBER YARD WORKER 0 8:21AM 11:59PM Clinical Notes Includes: Clinical Notes from this encounter No Clinical Notes Recorded
--- OUTSIDE RECORDS SUMMARY | 2024-12-15 10:54 | XMS_ITS | Clinical Summary ---
Author Organization [facility] Address [address] [place] [address] Phone Care Team Providers Care Fusing Machine Feeder Name Role Phone Unavailable Unavailable Unavailable Reason for Visit and Chief Complaint gynecologic annual exam - The Chief Complaint is: annual Plan of Treatment - SCREEN MAMMOGRAM NEC - Last Documented On 12/30/2009 9:40AM ; [facility] Radiology/*MAMMOGRAM: Mammogram - Last Documented On 12/30/2009 9:40AM ; [facility] ? Cervical Pap SmearIn office procedures/*Clia Waived Labs: Pap Smear Taken - Last Documented On 12/30/2009 9:40AM ; [facility] ? SCREEN MAL NEOP-RECTUMIn office procedures/*Clia Waived Labs: Fecal Occult Blood - Last Documented On 12/30/2009 9:40AM ; [facility] - Follow-up visit 1 year or as needed - Last Documented On 12/30/2009 9:40AM ; [facility] Pending Tests Order Diagnosis Results Due Ordering Andreea torrez Radiology @ other - *MAMMOGRAPHY Mammogram SCREEN MAMMOGRAM NEC 01/13/10 [facility] Last Documented On 0 9:35AM ; [facility] In office procedures - *Clia Waived Labs Fecal Occult Blood SCREEN MAL NEOP-RECTUM 01/13/10 DAFNE PEREZ GABY-,CNM Last Documented On 0 9:34AM ; [facility] In office procedures - *Clia Waived Labs Pap Smear Taken SCREEN MAL NEOP-CERVIX 01/13/10 DAFNE PEREZ [facility]-,CNM Last Documented On 0 9:34AM ; [facility] Instructions to patient Instructions for patient : B reast Self Exam discussed Last Documented On 0 9:20AM ; [facility] Education and Decision Aids were provided during visit for: Patient Education: Daily jessica cium and vitamin D Last Documented On 0 9:20AM ; [facility] Patient Education: weight be aring exercise Last Documented On 0 9:20AM ; [facility] Handout for self breast exam given Last Documented On 0 9:20AM ; [facility] Kegals handout given Last Documented On 0 9:20AM ; [facility] Calcium handout given Last Documented On 0 9:20AM ; [facility] BMI handout given Last Documented On 0 9:20AM ; [facility] Assessments Includes: Assessments from this encounter Findings - Routine pelvic exam - Last Documented On 12/30/2009 9:40AM ; [facility] Instructions Includes: Instructions from this encounter Instructions to patient Instructions for patient : B reast Self Exam discussed Last Documented On 0 9:20AM ; [facility] Education and Decision Aids were provided during visit for: Patient Education: Daily jessica cium and vitamin D Last Documented On 0 9:20AM ; [facility] Patient Education: weight be aring exercise Last Documented On 0 9:20AM ; [facility] Handout for self breast exam given Last Documented On 0 9:20AM ; [facility] Kegals handout given Last Documented On 0 9:20AM ; [facility] Calcium handout given Last Documented On 0 9:20AM ; [facility] BMI handout given Last Documented On 0 9:20AM ; [facility] Medical Equipment - Implanted Devices Includes: Current Devices No Medical Equipment Recorded Medications Includes: Medications discussed during this encounter and other current Medications Past Medications on file Estrace 0.1 MG/GM [facility] 12/20/2008 - 02/18/2009 Prov ider: Diagnosis: Last Documented On 10/25/2009 8:21AM By MAXIMO SWIFT ; [facility] Medications Administered Includes: Administered Medications from this encounter No Administered Medications Recorded Vital Signs Includes: Vital Signs from this encounter Vital Name 12/30/2009 08:30A Blood Pressure Sitting L 130/82 BP Cuff Size Regular Height (in) 64.5 Weight (lb) 173 Body Mass Index (kg/m2) 29.2 Body Surface Area (m2) 1.8 Last Documented: On 12/30/2009 8:33AM ; [facility] Results Includes: Results discussed during [...] 12/30/2009 Last Documented On 0 9:40AM ; [facility] Educational level: grade 12 10/25/2009 Last Documented On 0 8:31AM ; [facility] Exercise frequency 2-3 HRS /WK 0 Last Documented On 0 8:31AM ; [facility] Exercising regularly WALKING 10/25/2009 Last Documented On 0 8:31AM ; [facility] Marital history 10/25/2009 Last Documented On 0 8:31AM ; [facility] Zoroastrian affiliation VOODOO 0 Last Documented On 0 8:31AM ; [facility] Sexually active 10/25/2009 Last Documented On 0 8:31AM ; [facility] Sexually active with 1 partners in the l ast year 10/25/2009 Last Documented On 0 8:31AM ; [facility] Smoking Status Unknown Procedures and Surgical History Includes: Procedures from this encounter Procedures Code Diagnosis Performing Provider Service L ocation Service Date a fecal occult blood test was negative 77107 Last Documented On 0 9:20AM ; [facility] normal history of Pap smear of cervix Last Documented On 0 8:39AM ; [facility] Surgical History Last Updated History of hysterectomy 200412/30/2009 Last Documented On 0 9:40AM ; [facility] History of total abdominal hysterectomy 2004 Dr. Rudd 12/30/2009 Last Documented On 0 9:40AM ; [facility] No history of appendectomy 12/30/2009 Last Documented On 0 9:40AM ; [facility] No history of cholecystectomy 12/30/2009 Last Documented On 0 9:40AM ; [facility] No history of Loop electrode excision of cervix (LEEP) 12/30/2009 Last Documented On 0 9:40AM ; [facility] No history of tubal ligation 12/30/2009 Last Documented On 0 9:40AM ; [facility] No history of vaginal hysterectomy 12/30 Last Documented On 0 9:40AM ; [facility] Surgical / procedural history ruptured o varian cyst; [facility] 12/30/2009 Last Documented On 0 9:40AM ; [facility] Medical History Includes: Medical History addressed during this encounter Description Last Updated Aborta 1 12/30/2009 Last Documented On 0 9:40AM ; [facility] Last mammogram date: 12/23/2008 12/23/08 Last Documented On 0 9:40AM ; [facility] Last pap smear date 12/20/2008 12/30/2009 Last Documented On 0 9:40AM ; [facility] LMP: 200412/30/2009 Last Documented On 0 9:40AM ; [facility] No history of cervical dysplasia 010 Last Documented On 0 9:40AM ; [facility] No history of dysfunctional uterine blee ding 12/30/2009 Last Documented On 0 9:40AM ; [facility] No history of human papilloma virus infe ction 12/30/2009 Last Documented On 0 9:40AM ; [facility] Para 2 12/30/2009 Last Documented On 0 9:40AM ; [facility] comments: 2 vaginal births; 1 SAB 12/30/2009 Last Documented On 0 9:40AM ; [facility] Result: normal 12/30/2009 Last Documented On 0 9:40AM ; [facility] Result: normal 12/30/2009 Last Documented On 0 9:40AM ; [facility] CYST RUPTURED - OVARIAN LT 10/25/2009 Last Documented On 0 8:31AM ; [facility] 1 miscarriage(s) 10/25/2009 Last Documented On 0 8:31AM ; [facility] 2 living children 10/25/2009 Last Documented On 0 8:31AM ; [facility] A breast self-exam was performed 010 Last Documented On 0 8:31AM ; [facility] A mammogram was performed 10/25/2009 Last Documented On 0 8:31AM ; [facility] A Pap smear was performed 10/25/2009 Last Documented On 0 8:31AM ; [facility] weight: was 9.2 kg 10/25/2009 Last Documented On 0 8:31AM ; [facility] Delivery date 1984 10/25/2009 Last Documented On 0 8:31AM ; [facility] 3 10/25/2009 Last Documented On 0 8:31AM ; [facility] History of the 2nd : 10/25/2009 Last Documented On 0 8:31AM ; [facility] Type of delivery: VAGINAL 10/25/2009 Last Documented On 0 8:31AM ; [facility] Family History Includes: Family History addressed during this encounter Description Last Updated Family history of malignant neoplasm of the large intestine Father 12/30/2009 Last Documented On 0 9:40AM ; [facility] No family history of diabetes mellitus 0 12/30/2009 Last Documented On 0 9:40AM ; [facility] No family history of malignant female br east neoplasm 12/30/2009 Last Documented On 0 9:40AM ; [facility] No family history of malignant neoplasm of the ovary 12/30/2009 Last Documented On 0 9:40AM ; [facility] Family history of Cancer 10/25/2009 Last Documented On 0 8:31AM ; [facility] Review of Systems Includes: Review of Systems [...] Location Date Check-In Time Check-Out Time Diagnosis HORSE AND WAGON DRIVER EXAM DAFNE ZHU,CNM [facility] FARE ENFORCEMENT OFFICER 0 8:10AM 9:34AM Routine Pelvic Exam Clinical Notes Includes: Clinical Notes from this encounter No Clinical Notes Recorded
--- OUTSIDE RECORDS SUMMARY | 2024-12-15 10:54 | XMS_ITS ---
Author Organization [facility] Address [address] [place] [address] Phone Care Team Providers Care Cigar Head Pegger Name Role Phone Unavailable Unavailable Unavailable Plan of Treatment Findings Encounter Date Ordered follow-up visit 1 ye ar or as needed BATH SOLUTION MAKER EXAM with DAFNE ZHU CNM 12/30/2009 Last Documented On 0 9:40AM ; [facility] Instructions to patient Instructions for patient : B reast Self Exam discussed Last Documented On 0 9:20AM ; [facility] Education and Decision Aids were provided during visit for: Patient Education: Daily jessica cium and vitamin D Last Documented On 0 9:20AM ; [facility] Patient Education: weight be aring exercise Last Documented On 0 9:20AM ; [facility] Handout for self breast exam given Last Documented On 0 9:20AM ; [facility] Kegals handout given Last Documented On 0 9:20AM ; [facility] Calcium handout given Last Documented On 0 9:20AM ; [facility] BMI handout given Last Documented On 0 9:20AM ; [facility] Assessments Includes: Assessments for all patient encounters Findings Encounter Date Routine pelvic exam BATH SOLUTION MAKER EXAM with DAFNE ZHU CNM 12/30/2009 Last Documented On 0 9:40AM ; [facility] Instructions Includes: Instructions for all patient encounters Instructions to patient Instructions for patient : B reast Self Exam discussed Last Documented On 0 9:20AM ; [facility] Education and Decision Aids were provided during visit for: Patient Education: Daily jessica cium and vitamin D Last Documented On 0 9:20AM ; [facility] Patient Education: weight be aring exercise Last Documented On 0 9:20AM ; [facility] Handout for self breast exam given Last Documented On 0 9:20AM ; [facility] Kegals handout given Last Documented On 0 9:20AM ; [facility] Calcium handout given Last Documented On 0 9:20AM ; [facility] BMI handout given Last Documented On 0 9:20AM ; [facility] Medical Equipment - Implanted Devices Includes: Current and historical Devices No Medical Equipment Recorded Medications Includes: Current and historical Medications Past Medications on file Estrace 0.1 MG/GM [facility] 12/20/2008 - 02/18/2009 Prov ider: Diagnosis: Last Documented On 10/25/2009 8:21AM By MAXIMO SWIFT ; [facility] Medications Administered Includes: Administered Medications in patient's chart No Administered Medications Recorded Results Includes: Results from 12/16/2023 through 12/15/2024 No Results Recorded For Specified Dates History of Present Illness History of Present Illness not supported for this document type No History of Present Illness Recorded Social History Description Last Updated Non-smoker 12/30/2009 Last Documented On 0 9:40AM ; [facility] Educational level: grade 12 10/25/2009 Last Documented On 0 8:25AM ; [facility] Exercise frequency 2-3 HRS /WK 0 Last Documented On 0 8:25AM ; [facility] Exercising regularly WALKING 10/25/2009 Last Documented On 0 8:25AM ; [facility] Marital history 10/25/2009 Last Documented On 0 8:25AM ; [facility] Mandaen affiliation JEW 0 Last Documented On 0 8:25AM ; [facility] Sexually active 10/25/2009 Last Documented On 0 8:25AM ; [facility] Sexually active with 1 partners in the l ast year 10/25/2009 Last Documented On 0 8:25AM ; [facility] Smoking Status Unknown Procedures and Surgical History Surgical History Last Updated History of hysterectomy 200412/30/2009 Last Documented On 0 9:40AM ; [facility] History of total abdominal hysterectomy 2004 Dr. Rudd 12/30/2009 Last Documented On 0 9:40AM ; [facility] No history of appendectomy 12/30/2009 Last Documented On 0 9:40AM ; [facility] No history of cholecystectomy 12/30/2009 Last Documented On 0 9:40AM ; [facility] No history of Loop electrode excision of cervix (LEEP) 12/30/2009 Last Documented On 0 9:40AM ; [facility] No history of tubal ligation 12/30/2009 Last Documented On 0 9:40AM ; [facility] No history of vaginal hysterectomy 12/30 Last Documented On 0 9:40AM ; [facility] Surgical / procedural history ruptured o varian cyst; [facility] 12/30/2009 Last Documented On 0 9:40AM ; [facility] Medical History Includes: Medical History in patient's chart Description Last Updated Aborta 1 12/30/2009 Last Documented On 0 9:40AM ; [facility] Last mammogram date: 12/23/2008 12/23/08 Last Documented On 0 9:40AM ; [facility] Last pap smear date 12/20/2008 12/30/2009 Last Documented On 0 9:40AM ; [facility] LMP: 200412/30/2009 Last Documented On 0 9:40AM ; [facility] No history of cervical dysplasia 010 Last Documented On 0 9:40AM ; [facility] No history of dysfunctional uterine blee ding 12/30/2009 Last Documented On 0 9:40AM ; [facility] No history of human papilloma virus infe ction 12/30/2009 Last Documented On 0 9:40AM ; [facility] Para 2 12/30/2009 Last Documented On 0 9:40AM ; [facility] comments: 2 vaginal births; 1 SAB 12/30/2009 Last Documented On 0 9:40AM ; [facility] Result: normal 12/30/2009 Last Documented On 0 9:40AM ; [facility] Result: normal 12/30/2009 Last Documented On 0 9:40AM ; [facility] CYST RUPTURED - OVARIAN LT 10/25/2009 Last Documented On 0 8:25AM ; [facility] 1 miscarriage(s) 10/25/2009 Last Documented On 0 8:25AM ; [facility] 2 living children 10/25/2009 Last Documented On 0 8:25AM ; [facility] A breast self-exam was performed 010 Last Documented On 0 8:25AM ; [facility] A mammogram was performed 10/25/2009 Last Documented On 0 8:25AM ; [facility] A Pap smear was performed 10/25/2009 Last Documented On 0 8:25AM ; [facility] weight: was 9.2 kg 10/25/2009 Last Documented On 0 8:25AM ; [facility] Delivery date 1984 10/25/2009 Last Documented On 0 8:25AM ; [facility] 3 10/25/2009 Last Documented On 0 8:25AM ; [facility] History of the 2nd : 10/25/2009 Last Documented On 0 8:25AM ; [facility] Type of delivery: VAGINAL 10/25/2009 Last Documented On 0 8:25AM ; [facility] Family History Includes: Family History in patient's chart Description Last Updated Family history of malignant neoplasm of the large intestine Father 12/30/2009 Last Documented On 0 9:40AM ; [facility] No family history of diabetes mellitus 0 12/30/2009 Last Documented On 0 9:40AM ; [facility] No family history of malignant female br east neoplasm 12/30/2009 Last Documented On 0 9:40AM ; [facility] No family history of malignant neoplasm of the ovary 12/30/2009 Last Documented On 0 9:40AM ; [facility] Family history of Cancer 10/25/2009 Last Documented On 0 8:25AM ; [facility] Review of Systems Review of Systems not [...]
--- OUTSIDE RECORDS SUMMARY | 2024-12-15 10:54 | XMS_ITS | Referral Summary ---
Author Organization [facility] Address [address] [place] [address] Care Team Providers Care Roll Grinder Operator Name Role Phone Myrna Guzman MD Primary Care Provider Encounters Date Type Department Care Team Description 11/19/2024 Telephone [facility] Medical Group [facility] Care at [address] [address] Vernell Cazares MD upcoming appt. from Last 3 Months Allergies No known active allergies Medications pravastatin [...] staff should administer the PHQ-9) 0 04/08/2023 Comments No Sex and Gender Information Value Date Recorded Sex Assigned at Not on file Legal Sex Female 4:16 PM PETROLEUM SAMPLER Gender Identity Not on file Sexual Orientation [...] to Health Maintenance Insurance MEDICARE COMMERCIAL GENERIC MEDICARE Care Teams Roll Grinder Operator Relationship Specialty Start Date End Date Myrna Guzman MD PCP - General Family Practice 04/08/23
--- OUTSIDE RECORDS SUMMARY | 2024-12-15 10:54 | XMS_ITS | Clinical Summary ---
Author Organization [facility] Address [address] [place] [address] Care Team Providers Care Improvement Manager Name Role Phone Myrna Guzman MD Primary Care Provider Allergies No known active allergies Medications pravastatin (PRAVACHOL) 20 mg tablet take 2 tablet by oral route every day 0 0 03/04/2014 Active amLODIPine (NORVASC) 5 mg tablet Take 1 tablet (5 mg total) by mouth daily 01/22/2023 Active Active Problems Problem Noted Date Diagnosed Date Hyperlipidemia 03/04/2014 Overview (12/27/2016): Hyperlipemia Encounters Date Type Department Care Team Description 11/19/2024 Telephone [facility] Medical Group [facility] at [address] [address] Vernell Cazares MD upcoming appt. from Last 3 Months Surgical History Surgery Date Site/Laterality Comments OTHER [...] on file Legal Sex Female 4:16 PM RN PSYCHIATRIC Gender Identity Not on file Sexual Orientation Not on file Obstetrics History Para Term AB IAB SAB Ectopic Multiple Livin g Live Births 3 2 2 2 Date Outcome GA Total Labor Labor/2nd/3rd Weight Sex Type Anes PTL Marie A1 [...] 04/2019, 09/27/2017 Osteoporosis Screening-Bone Density Scan 05/05/2021 05/05/2019, 05/05/2019, 05/05/2019, Additional history exists DTaP/Tdap/Td Vaccine (2 - Td or Tdap) [...] Insurance MEDICARE COMMERCIAL GENERIC MEDICARE Care Teams Improvement Manager Relationship Specialty Start Date End Date Myrna Guzman MD PCP - General Family Practice 04/08/23
--- OUTSIDE RECORDS SUMMARY | 2024-12-15 10:54 | XMS_ITS ---
Care Plan - [facility] Created on: December 15, 2024 NINA LINK : 1955 Sex: Female Author Organization [facility] Address [address] [place] [address] Phone Care Team Providers Care Printed Circuit Board Panels Developer Name Role Phone Unavailable Unavailable Unavailable
[2024-12-15 19:40] LABS: Alanine Aminotransferase 20 U/L (6-35); Albumin Level 4.3 g/dL (3.5-5.1); Alkaline Phosphatase 91 U/L (38-126); Anion Gap 11 mmol/L (4-12); Aspartate Amino Transferase 30 U/L (14-36); Bilirubin,Total 1.5 mg/dL (0.2-1.3); Blood Urea Nitrogen 16 mg/dL (7-17); Calcium 8.9 mg/dL (8.4-10.2); Carbon Dioxide 27 mmol/L (22-30); Chloride 103 mmol/L (98-107); Cholesterol 203 mg/dL (0-200); Estimated Glomerular Filt Rate > 60; Glucose 83 mg/dL (65-110); HDL Direct 56 mg/dL; Potassium 4.1 mmol/L (3.4-5.0); Sodium 141 mmol/L (137-145); Triglycerides 178 mg/dL (<150)
[2024-12-15 19:51] LABS: LDL Cholesterol Direct 102 mg/dL
== END 2024-12-15 09:39 | disposition home or self-care (01) ==
LOC: ANHGOSHLAB 09:40
PROVIDERS: PCP Family Medicine; Visit Provider Nurse Practitioner Family
DX: E78.5 Hyperlipidemia, unspecified (principal); I10 Essential (primary) hypertension
CPT/HCPCS: 36415; 80053; 80061

== ENCOUNTER 2025-05-31 15:57 | Outpatient (NON) | payer MEDICARE, SELFPAY ==
--- OUTSIDE RECORDS SUMMARY | 2025-05-31 16:00 | XMS_ITS | Clinical Summary ---
Author Organization [facility] Address [address] [place] [address] Care Team Providers Care Flash Drier Operator Name Role Phone Unavailable Primary Care Provider Unavailabl e Source Comments [facility] [employer],non-owned Affiliates and Associated Physician Practices is amultiple site organization consisting of ambulatory clinics and hospital sitesin [place], [place], [place] and [place]. This disclosure is being madepursuant to the Care Everywhere program and may not contain all information available regarding this patient. 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
--- OUTSIDE RECORDS SUMMARY | 2025-05-31 16:00 | XMS_ITS | Clinical Summary ---
Author Organization [facility] Address [address] [place] [address] Phone Care Team Providers Care Porcelain Slusher Name Role Phone Elijah Kaufman MD Primary Care Provider [phone] Allergies No known active allergies Medications No known medications Active Problems Patient Care Coordination No te Formatting of this note migh t be different from the original. 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 operations superintendent Problem Noted Date Diagnosed Date Mammographic calcification [...] 9:59 AM CDT Height 162.6 cm (5' 4) 02/23/2013 9:59 AM CDT Body Mass Index [...] 03/15/20 22, 03/02/2021, 05/05/2019, Additional history exists OSTEOPOROSIS SCREENING 05/05/2024 05/05/2019, 2016 INFLUENZA VACCINE (#1) 2025 RSV VACCINE (60+ or ) (1 - 1-dose 75+ series) 01/18/2031 Procedures Procedure Name Priority Date/Time Associated Diagnosis [...] follow-up Overall Assessment: Birads Category 1: Negative us Leticia Esquivel CNM MAMMO ORDERABLES Final Resu lt * XR DEXA BONE DENSITY AXIAL 1 OR MORE SITES (05/05/2019 10:42 AM CDT) Anatomical Region Laterality Modality Computed Radiogr aphy 05/05/2019 10:4 2 AM CDT Impressions 05/05/2019 10:47 AM CDT IMPRESSION: This is a summary page. Please refer to the complete detailed report found in the Imaging Section of the [facility] EMR. Normal BMD. Comments: L3 and [...] years thereafter DICTATION LOCATION: Location 1 - [facility] Narrative 05/05/2019 10:47 AM CDT EXAMINATION: BONE [...] found in the Imaging Section of the [facility] EMR. Normal BMD. Comments: L3 and [...] 2 years thereafter DICTATION LOCATION: Location 1 [facility] Leticia FARRIS DIAGNOSTIC IMAGING ORDERABL ES Final Result from Last 3 Months or Most Recently Relevant to Health Maintenance Insurance MEDICARE PART A AND B [facility] Care Teams Porcelain Slusher Relationship Specialty Start Date End Date Elijah Kaufman MD [address] [place] [id number] PCP - General Family Practice 02/23/13
--- OUTSIDE RECORDS SUMMARY | 2025-05-31 16:00 | XMS_ITS | Clinical Summary ---
Author Organization [facility] Address [address] [place] [address] Care Team Providers Care Management Lecturer Name Role Phone Myrna Guzman MD Primary Care Provider Allergies No known active allergies Medications pravastatin (PRAVACHOL) 20 mg tablet take 2 tablet by oral route every day 0 0 03/04/2014 Active amLODIPine (NORVASC) 5 mg tablet Take 1 tablet (5 mg total) by mouth daily 01/22/2023 Active Active Problems Problem Noted Date Diagnosed Date Well woman exam 04/26/2025 Overview (04/26/2025): Lab: Pap: Hx Hysterectomy w/ BSO , No Cervix all paps normal Labs with PCP Martir:06/08/2024, WNL Colonoscopy: per pt 2 yrs ago w/ [facility]. Rpts every 5 yrs, father had colon cancer. BMD:05/05/2019, Normal due Assessment & Plan (04/26/2025 11:54 AM CDT): Complete exam done To bmd Hyperlipidemia 03/04/2014 Overview (12/27/2016): Hyperlipemia Encounters Date Type Department Care Team Description 04/26/2025 11:15 AM CDT Office Visit [facility] Medical [facility] at [address] [address] Vernell Cazares MD Well woman exam (Primary Dx); Screening for osteoporosis; Age-related osteoporosis without current pathological fracture from Last 3 Months Surgical History Surgery [...] Hypertension; Other Mother Heart valve rep lacement; Cancer Neg Hx no breast or gy n cancer cmt 04/26/25 Relation Name Status Comments Father Mother Social History Tobacco Use Types Packs/Day Years Used Date Smoking Tobacco: Never Smokeless Tobacco: Never Alcohol Use Standard Drinks/Week Comments No 0 (1 standard drink = 0.6 oz pur e alcohol) Humiliation, Afraid, Rape, and Kick questionnair e Answer Date Recorded Within the last year, have y ou been afraid of your partner or ex-partner? No 04/26/2025 Within the last year, have y ou been humiliated or emotionally abused in other ways by your partner or ex-partner? No Within the last year, have y ou been kicked, hit, slapped, or otherwise physically hurt by your partner or ex-partner? No 04/26/2025 Within the last year, have y ou been raped or forced to have any kind of sexual activity by your partner or ex-partner? No 04/26/2025 AUDIT-C Answer Date Recorded Q1: How often do you have a drink containing alcohol? Never 04/26/2025 Q2: How many drinks containi ng alcohol do you have on a typical day when you are drinking? Patient does not drink Q3: How often do you have si x or more drinks on one occasion? 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 Gender Identity Not on file Sexual Orientation Not on file Obstetrics History Para Term AB IAB SAB Ectopic Multiple Livin g Live Births 3 2 2 2 Date Outcome GA Total Labor Labor/2nd/3rd Weight Sex Type Anes PTL Marie A1 A5 Name Clin Para Para Last Filed Vital Signs Vital Sign Reading Time Taken Comments Blood Pressure 130/74 04/26/2025 11:37 AM CDT Pulse 90 04/08/2023 2:59 PM CDT Temperature - - Respiratory Rate - - Oxygen Saturation - - Inhaled Oxygen Concentration - - Weight 83.1 kg (183 lb 1.6 oz) 04/26/2025 11:37 AM CDT Height 162.6 cm (5' 4) 04/26/2025 11:37 AM CDT Body Mass Index 31.43 04/26/2025 11:37 AM CDT Plan of Treatment Health Maintenance [...] (2 - Td or Tdap) 12/29/2022 12/29/2012 Influenza Vaccine (#1) 2025 07/12/2017, 2013 Breast Cancer Screening-Mammogram 06/15/2025 06/15/2024, 06/04/2023, 03/15/2022, Additional history exists Depression Screening 04/26/2026 04/26/2025, 04/08/2023, 03/07/2021, Additional history exists Procedures Procedure Name Priority [...] Recently Relevant to Health Maintenance Insurance MEDICARE MEDICARE [employer] MEDICARE SUPPLEMENT Care Teams Management Lecturer Relationship Specialty Start Date End Date Myrna Guzman MD PCP - General Family Practice 04/08/23
== END 2025-05-31 15:58 | disposition home or self-care (01) ==
LOC: ANHGOSHLAB 15:58
PROVIDERS: PCP Family Medicine; Visit Provider Family Medicine
DX: N39.0 Urinary tract infection, site not specified (principal)
CPT/HCPCS: 87086

== ENCOUNTER 2025-06-14 09:59 | Outpatient (CLI) | payer MEDICARE, SELFPAY ==
--- NOTE | ~2025-06-14 | MM_ITS ---
EXAMINATION: MM screening cheikh BI w brianna HISTORY: Screening TECHNIQUE: Craniocaudal and mediolateral oblique 3-D tomosynthesis images were obtained and synthetic 2-D images were generated. CAD analysis was submitted and interpreted. COMPARISON: Comparison to multiple prior studies sequentially, with oldest reviewed study dated 05/05/2019. BREAST PARENCHYMAL COMPOSITION: There are scattered areas of fibroglandular density. FINDINGS: There is no evidence of suspicious mass, calcification, or architectural distortion to suggest malignancy in either breast. Scattered benign-appearing calcifications are present. Biopsy clip in the right breast. IMPRESSION: 1. No mammographic evidence of malignancy. 2. Recommend routine screening mammography in one year. BI-RADS Category 2: Benign finding(s). Reviewed, dictated and finalized at location B.
== END 2025-06-14 10:00 | disposition home or self-care (01) ==
PROVIDERS: PCP Obstetrics & Gynecology; Visit Provider Family Medicine
DX: Z12.31 Encounter for screening mammogram for malignant neoplasm of breast (principal)
CPT/HCPCS: 77063; 77067

== ENCOUNTER 2025-06-18 08:22 | Outpatient (CLI) | payer MEDICARE, SELFPAY ==
--- OUTSIDE RECORDS SUMMARY | 2025-06-18 08:25 | XMS_ITS | Clinical Summary ---
Author Organization [facility] Address [address] [place] [address] Care Team Providers Care Production Coordinator Name Role Phone Myrna Guzman MD Primary [...] Colonoscopy: per pt 2 yrs ago w/ [facility]. Rpts every 5 yrs, father had colon cancer. 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
--- OUTSIDE RECORDS SUMMARY | 2025-06-18 08:25 | XMS_ITS | Clinical Summary ---
Author Organization [facility] Address [address] [place] [address] Phone Care Team Providers Care Sheep Sorter Name Role Phone Elijah Kaufman MD Primary Care Provider [phone] Allergies No known active allergies Medications No known medications Active Problems Patient Care Coordination No te Formatting of this note migh t be different from the original. Primary Care: Elijah Kaufman MD Referring Provider: Rodney Dc MD [address] [place] [address] [place] [address] Other: wesley esquivel storage battery inspector Problem Noted Date Diagnosed Date Mammographic calcification [...] found in the Imaging Section of the [facility] EMR. Normal BMD. Comments: L3 and L4 [...] years thereafter DICTATION LOCATION: Location 1 - [facility] Narrative 05/05/2019 10:47 AM CDT [...] found in the Imaging Section of the [facility] EMR. Normal BMD. Comments: L3 and L4 [...] 2 years thereafter DICTATION LOCATION: Location 1 [facility] Leticia FARRIS DIAGNOSTIC IMAGING ORDERABL ES Final Result from Last 3 Months or Most Recently Relevant to Health Maintenance Insurance MEDICARE PART A AND B [facility] Care Teams Sheep Sorter Relationship Specialty Start Date End Date Elijah Kaufman MD [address] [place] [id number] PCP - General Family Practice 02/23/13
--- OUTSIDE RECORDS SUMMARY | 2025-06-18 08:25 | XMS_ITS | Clinical Summary ---
Author Organization [facility] Address [address] [place] [address] Care Team Providers Care Banking Officer Name Role Phone Unavailable Primary Care Provider Unavailabl e Source Comments [facility],non-owned Affiliates and Associated Physician Practices is amultiple site organization consisting of ambulatory clinics and hospital sitesin [place], [place], [place] and [place]. This disclosure is being madepursuant to the Care Everywhere program and may not contain all information available regarding this patient. 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
[2025-06-18 18:07] LABS: Hematocrit 46.2 % (37.0-47.0); Hemoglobin 14.6 g/dL (12.0-15.0); Immature Granulocyte Percent A 0.5 % (0-0.5); Lymphocytes Absolute Auto 2.19 K/mm3 (0.9-3.2); Mean Corpuscular HGB Conc 31.6 g/dl (32-36); Mean Corpuscular Hemoglobin 28.1 pg (26-34); Mean Corpuscular Volume 88.8 fl (80-100); Nucleated Red Blood Cells Absolute Auto 0.000 K/mm3 (0.0-0.012); Nucleated Red Blood Cells Perc 0.0 % (0.0-0.2); Platelet Count Result 314 k/mm3 (150-375); Red Blood Count 5.20 M/mm3 (4.2-5.4); White Blood Count 5.7 K/mm3 (4.5-10.0)
[2025-06-18 18:12] LABS: Hemoglobin A1C 5.7 % (<5.7)
[2025-06-18 18:26] LABS: Cholesterol 190 mg/dL (0-200); HDL Direct 47 mg/dL; Triglycerides 173 mg/dL (<150)
== END 2025-06-18 08:23 | disposition home or self-care (01) ==
LOC: ANHGOSHLAB 08:23
PROVIDERS: PCP Family Medicine; Visit Provider Nurse Practitioner Family
DX: R73.01 Impaired fasting glucose (principal); I10 Essential (primary) hypertension; E78.5 Hyperlipidemia, unspecified; E55.9 Vitamin D deficiency, unspecified
CPT/HCPCS: 36415; 80061; 82306; 83036; 85025

== ENCOUNTER 2025-08-23 10:58 | Outpatient (CLI) | payer MEDICARE, SELFPAY ==
--- NOTE | ~2025-08-23 | DEXA_ITS ---
Bone Density Report Name: NINA LINK Age: 70 Sex: Female Ethnicity: White Date of : 1955 Indication: postmenopausal; screening for osteoporosis; Referring Provider: RACHEL, COMFORT Melvin Study: Bone densitometry was performed. Exam Date: August 23, 2025 Accession number: [id number] Bone Density: Region BMD T-score Z-score Classification AP Spine(L1-L4) 0.916 -1.2 0.9 Osteopenia Femoral Neck (Left) 0.795 -0.5 1.3 Normal Total Hip (Left) 0.822 -1.0 0.5 Normal Femoral Neck (Right) 0.705 -1.3 0.5 Osteopenia Total Hip (Right) 0.791 -1.2 0.2 Osteopenia Total Hip Mean 0.807 -1.1 0.4 Osteopenia World Health Organization criteria for BMD impression classify patients as: Normal (T-score at or above -1.0), Osteopenia (T-score between -1.0 and -2.5), or Osteoporosis (T-score at or below -2.5). 10-year Fracture Risk(1): Major Osteoporotic Fracture 9.0% Hip Fracture 1.1% Reported Risk Factors: [place] (), Neck BMD=0.705, BMI=31.1 (1) FRAX(R) Version 3.08. Fracture probability calculated for an untreated patient. Fracture probability may be lower if the patient has received treatment. Previous Exams: -- Region Exam Age BMD T-score BMD Change BMD Change Date g/cm2 vs Baseline vs Previous -- AP Spine (L1-L4) 08/23/2025 70 0.916 -1.2 -4.4%* -4.4%* 07/26/2023 68 0.959 -0.8 Total Hip(Left) 08/23/2025 70 0.822 -1.0 -6.1%* -6.1%* 07/26/2023 68 0.875 -0.5 Total Hip(Right) 08/23/2025 70 0.791 -1.2 -4.7%* -4.7%* 07/26/2023 68 0.830 -0.9 -- *Denotes significance at 95% confidence level, LSC for AP Spine = 0.022 g/cm2, LSC for Total Hip = 0.027 g/cm2 Clinical Information Provided by Patient: Has used the following medications: Vitamin D, Calcium Patient maximum height was 64 Menopause Age: 46 No regular weight bearing exercise Onset of menses at age 13 Number of children 2 Impression: The patient has low bone mass, based on the Right Femoral Neck T-score. The patient has an estimated ten-year risk of hip fracture of 1.1% and an estimated ten-year risk of major fracture of 9%, based on the WHO FRAX algorithm. The BMD for the AP Spine (L1-L4) decreased, changing by -4.4% since the last DXA exam. The BMD for the Total Hip(Left) decreased, changing by -6.1% since the last DXA exam. The BMD for the Total Hip(Right) decreased, changing by -4.7% since the last DXA exam. Discussion: BONE DENSITY IS LOW AT ONE OR MORE SKELETAL SITES. This patient's lowest T-score is low at one or more skeletal sites. It meets the World Health Organization's (WHO) criteria for ?low bone mass? (T-score between -1.0 and -2.5). The patient's 10-year risk of fracture as calculated by FRAX is less than the threshold where pharmacological therapy is recommended by the National Osteoporosis Foundation (NOF). However, all treatment decisions require clinical judgment and consideration of individual patient factors, including patient preferences, comorbidities, previous drug use, risk factors not captured in the FRAX model (e.g., frailty, falls, vitamin D deficiency, increased bone turnover, interval significant decline in bone density) and possible under or overestimation of fracture risk by FRAX. The patient should follow a healthful lifestyle (good nutrition with adequate calcium and vitamin D, and appropriate weight-bearing exercise). Follow-Up: Consider repeating this study in 2 years to reassess this patient's status, or sooner if there is some new clinical indication. Reported by: AC on 08/23/2025 11:16:00 AM. Reviewed, dictated and finalized at location A.
== END 2025-08-23 10:59 | disposition home or self-care (01) ==
LOC: MICIMG 10:59
PROVIDERS: PCP Family Medicine; Visit Provider Obstetrics & Gynecology
DX: M85.89 Other specified disorders of bone density and structure, multiple sites (principal); Z13.820 Encounter for screening for osteoporosis; M81.0 Age-related osteoporosis without current pathological fracture
CPT/HCPCS: 77080